=== PATIENT | female | born 1990 | race Caucasian/White ===

== ENCOUNTER 2021-02-06 17:45 | Observation (INO) | payer OTHER, SELFPAY ==
[2021-02-06 17:47] VITALS: BP 129/70; PULSE 81; RESP 20; TEMP 36.8; O2SAT 100
[2021-02-06 18:18] LABS: Bacteria Urine None Seen
[2021-02-06 18:23] LABS: Alanine Aminotransferase 13 IU/L (<35); Albumin 4.4 g/dL (3.5-5.0); Albumin Globulin Ratio 1.3 (1.0-2.8); Alkaline Phosphatase 97 U/L (38-126); Aspartate Aminotransferase 23 IU/L (14-36); BUN Creatinine Ratio 16.9 (6-22); Bilirubin Total 1.6 mg/dL (0.2-1.3); Blood Urea Nitrogen 14 mg/dL (7-17); Calcium 9.6 mg/dL (8.4-10.2); Carbon Dioxide 24 mmol/L (22-32); Chloride 104 mmol/L (98-107); Estimated Glomerular Filt Rate > 60.0 mL/min (>60); Globulin 3.5 g/dL (1.7-4.1); Glucose 98 mg/dL (70-100); HEMOLYSIS < 15 (0-50); Lipase 76 U/L (23-300); Potassium 4.1 mmol/L (3.4-5.1); Sodium 140 mmol/L (137-145); Total Protein 7.9 g/dL (6.3-8.2)
[2021-02-06 18:25] LABS: Add Manual Diff / Slide Review NO; Basophils Absolute Auto 100 /uL (0-100); Basophils Percent Auto 0.3 % (0-2); Eosinophils Absolute Auto 100 /uL (0-450); Eosinophils Percent Auto 0.6 % (2-4); Hematocrit 43.6 % (36-46); Hemoglobin 14.8 g/dL (12.0-16.0); Lymphocytes Absolute Auto 2900 /uL (1100-4500); Lymphocytes Percent Auto 14.8 % (25-40); Mean Corpuscular Hemoglobin 32.6 PG (26-34); Mean Corpuscular Volume 95.9 fL (80-100); Monocytes Absolute Auto 1200 /uL (0-900); Neutrophils Absolute Auto 15500 /uL (1500-7000); Neutrophils Percent Auto 78.3 % (50-75); Platelet Count 323 X10^3/uL (150-400); Red Blood Cell Count 4.54 X10^6/uL (4.0-5.2); Red Cell Distribution Width 12.5 % (11.6-14.8); White Blood Cell Count 19.8 X10^3/uL (4.5-11.0)
[2021-02-06 18:36] LABS: Culture Indicated Urine Cult Not Indicated; RBC Urine 0-1/HPF (0-5/HPF); Transitional Epi Cells Urine 0-1/HPF (0-5/HPF); WBC Urine 0-1/HPF (0-5/HPF)
--- NOTE | 2021-02-06 20:00 | ED.ABDPAIN ---
HPI - Abdominal Pain General Chief Complaint: Abdominal Pain Stated Complaint: abdominal pain right side Time Seen by Provider: 02/06/21 20:00 Source: patient Mode of arrival: Ambulatory History of Present Illness HPI narrative: Patient is a 30-year-old female is who is 2 weeks presenting with right lower quadrant pain. She states it started yesterday in her abdomen around her umbilical area and has localized to her right lower quadrant. It does hurt to walk a. She has had rigors but denies any fever. She currently is pain-free. She has had significant decrease in appetite but did have a bar about an hour ago. She is currently breast feeding. She denies any vaginal discharge. She says that her bleeding has decreased she does have some light brown spotting now. She did have vaginal and tear but she says overall pain is very well controlled. She has some mild pain with urination. No real back pain. complaint: abdominal pain Onset (ago): day(s) Pain Consistency: constant Location: RLQ Quality: stabbing Migration to: RLQ Related Data Allergies Allergy/AdvReac Type Severity Reaction Status Date / Time red dye Allergy Severe Rash Verified 02/06/21 23:08 amoxicillin Allergy Intermediate Verified 02/06/21 23:08 Review of Systems Review of Systems Narrative: GENERAL: +chills, Denies chills, fatigue, malaise, fever, sweats, travel HEENT: Denies sinus pain, ear pain, sore throat, difficulty swallowing, neck pain RESPIRATORY: Denies dyspnea, cough, wheezing, hemoptysis, sputum. CARDIOVASCULAR: Denies chest pain, palpitations, orthopnea, edema GASTROINTESTINAL: See HPI : Denies dysuria, frequency, incontinence, hematuria, urinary retention, flank pain. MUSCULOSKELETAL: Denies weakness, joint pain, or bony pain SKIN: No rash, no erythema, no pruritus NEUROLOGIC: Denies weakness, dizziness, headache, numbness, change in speech, confusion PSYCHIATRIC: No concerning psychosocial issues. 12 point review of systems is negative except for those stated above and HPI Patient History Medical History Patient denies medical problems Social History household members: spouse and children Exam Initial Vital Signs Initial Vital Signs: Vital Signs Temperature 98.3 F 02/06/21 17:47 Pulse Rate 81 02/06/21 17:47 Respiratory Rate 20 02/06/21 17:47 Blood Pressure 129/70 02/06/21 17:47 Pulse Oximetry 100 02/06/21 17:47 GENERAL: Alert well-appearing 30-year-old female and in no acute distress. HEENT: Head atraumatic,EOMI, pupils reactive, face symmetric, moist mucous membranes CARDIOVASCULAR: Regular rate and rhythm without murmurs, rubs or gallops. RESPIRATORY: Breath sounds equal bilaterally, no wheezes rales or rhonchi. ABDOMEN: Soft, tender right lower quadrant negative psoas sign : No CVA tenderness EXTREMITIES: Normal range of motion, no clubbing or edema. Neurovascularly intact NEUROLOGICAL: Alert and oriented x4.Normal gait and speech. SKIN: Warm, dry, no laceration, no petechiae, no rashes or lesions. Course Orders Ordered: ED Orders 02/06/21 18:00 Complete Blood Count AUTO DIFF Stat Comprehensive Metabolic Panel Stat Lactate (Lactic Acid) Stat Lipase Stat 02/06/21 18:17 Urine Microscopic Stat 02/06/21 20:07 CT abdomen pelvis w con Stat 02/06/21 21:50 COVID19 - ADMIT (LEGAL ENTITY CONTROLLER swab/PCR) Stat Diphenhydramine HCl (Diphenhydramine 50 Mg/Ml Vial) 25 mg IV Q6HR PRN PRN Reason: Itching Hydromorphone HCl (Hydromorphone 1 Mg Inj) 0.5 mg IV Q4HR PRN PRN Reason: Pain, Severe (7-10) Lactated Ringer's (Lactated Ringers) 1,000 mls @ 120 mls/hr IV CONT ELLIOTT Piperacillin/Tazobactam/Dextrose (Zosyn) 3.375 gm in 50 mls @ 12.5 mls/hr IV Q8H ELLIOTT Naloxone HCl (Naloxone 0.4 Mg/Ml Vial) 0.2 mg IV Q2MIN PRN PRN Reason: Opiate Reversal Ondansetron HCl (Ondansetron 4 Mg/2 Ml Inj) 4 mg IV Q4HR PRN PRN Reason: Nausea And Vomiting Oxycodone/Acetaminophen (Oxycodone/Acetaminophen 5/325 Tablet) 1 tab PO Q4HR PRN PRN Reason: Pain, Moderate (4-6) Polyethylene Glycol (Polyethylene Glycol 3350 17 Gm Powd.Pack) 17 gm PO BID [facility] Sennosides (Sennosides 8.6 Mg Tablet) 17.2 mg PO DAILY ELLIOTT Discontinued Medications Acetaminophen (Acetaminophen 325 Mg Tablet) 975 mg PO NOW ONE Stop: 02/06/21 22:45 Acetaminophen (Acetaminophen 325 Mg Tablet) 975 mg PO PACUNOW PRN PRN Reason: Pain, Mild (1-3) Last Admin: 02/07/21 01:44 Dose: 975 mg Documented by: VALERY Bupivacaine HCl/Epinephrine Bitart (Bupivacaine 0.25% W/ Epi (Pf) 10 Ml Vial) 30 ml INJ NOW ONE Stop: 02/06/21 23:46 Last Admin: 02/07/21 01:05 Dose: 20 ml Documented by: Admin: 02/06/21 23:45 Dose: 30 ml Documented by: KELSEA Bupivacaine Liposome (Bupivacaine Liposome 266 Mg/20 Ml Vial) 266 mg INJ NOW ONE Stop: 02/06/21 23:50 Last Admin: 02/06/21 23:49 Dose: 266 mg Documented by: KELSEA Fentanyl (Fentanyl 100 Mcg/2 Ml Inj) 0 mcg IV Q5M PRN PRN Reason: Pain, Moderate (4-6) Last Admin: 02/07/21 01:33 Dose: 50 mcg Documented by: VALERY Hydromorphone HCl (Hydromorphone 2 Mg Inj) 0 mg IV Q5M PRN PRN Reason: Pain, Moderate (4-6) Hydroxyzine HCl (Hydroxyzine 50 Mg/Ml Inj) 25 mg IM NOW PRN PRN Reason: Pain, Mild (1-3) Hydroxyzine Pamoate (Hydroxyzine Pamoate 25 Mg Capsule) 25 mg PO NOW PRN PRN Reason: Pain, Mild (1-3) Piperacillin/Tazobactam/Dextrose (Zosyn) 4.5 gm in 100 mls @ 200 mls/hr IV NOW ELLIOTT Last Admin: 02/06/21 22:59 Dose: 200 mls/hr Documented by: VALERY Lactated Ringer's (Lactated Ringers) 1,000 mls @ 42 mls/hr IV CONT [facility] Last Infusion: 02/07/21 02:28 Dose: 0 mls/hr Documented by: Admin: 02/07/21 00:09 Dose: 42 mls/hr Documented by: Infusion: 02/07/21 00:09 Dose: 42 mls/hr Documented by: Admin: 02/06/21 22:58 Dose: 42 mls/hr Documented by: VALERY Sodium Chloride (Normal Saline 0.9%) 1,000 mls @ 125 mls/hr IV CONT ELLIOTT Famotidine (Pepcid) 20 mg in 50 mls @ 200 mls/hr IV NOW ONE Stop: 02/06/21 23:58 Last Infusion: 02/06/21 23:15 Dose: 0 mls/hr Documented by: Admin: 02/06/21 23:05 Dose: 200 mls/hr Documented by: PA Meperidine HCl (Meperidine 50 Mg/Ml Inj) 12.5 mg IV PACUNOW PRN PRN Reason: Mild pain or shivering Last Admin: 02/07/21 01:29 Dose: 12.5 mg Documented by: VALERY Metoclopramide HCl (Metoclopramide 10 Mg/2 Ml Inj) 10 mg IV NOW PRN PRN Reason: Nausea And Vomiting Ondansetron HCl (Ondansetron 4 Mg/2 Ml Inj) 4 mg IV NOW PRN PRN Reason: Nausea And Vomiting Oxycodone HCl (Oxycodone Ir 5 Mg Tablet) 5 mg PO PACUNOW PRN PRN Reason: Mild or moderate pain Last Admin: 02/07/21 01:45 Dose: 5 mg Documented by: VALERY Vital Signs Vital signs: Vital Signs - 8 hr 02/06/21 20:19 02/06/21 21:38 Pulse Rate 90 80 Respiratory Rate 20 20 Blood Pressure 119/67 119/66 Pulse Oximetry 98 98 MDM - Abdominal Pain Lab Data Result diagrams: 02/06/21 18:00 02/06/21 18:00 Labs: Lab Results 02/06/21 02/06/21 02/06/21 Range/Units 18:00 18:00 18:00 WBC 19.8 H (4.5-11.0) X10^3/uL RBC 4.54 (4.0-5.2) X10^6/uL Hgb 14.8 (12.0-16.0) g/dL Hct 43.6 (36-46) % MCV 95.9 (80-100) fL MCH 32.6 (26-34) PG MCHC 34.0 (30-36) % RDW 12.5 (11.6-14.8) % Plt Count 323 (150-400) X10^3/uL Neut % (Auto) 78.3 H (50-75) % Lymph % (Auto) 14.8 L (25-40) % [place] % (Auto) 6.0 (3-14) % Eos % (Auto) 0.6 L (2-4) % Baso % (Auto) 0.3 (0-2) % Neut # (Auto) 73357 H (4670-4784) /uL Lymph # (Auto) 2900 (9973-3087) /uL [place] # (Auto) 1200 H (0-900) /uL Eos # (Auto) 100 (0-450) /uL Baso # (Auto) 100 (0-100) /uL PT INR APTT Sodium 140 (137-145) mmol/L Potassium 4.1 (3.4-5.1) mmol/L Chloride 104 (98-107) mmol/L Carbon Dioxide 24 (22-32) mmol/L BUN 14 (7-17) mg/dL Creatinine 0.83 (0.52-1.04) mg/dL Estimated GFR > 60.0 (>60) mL/min BUN/Creatinine Ratio 16.9 (6-22) Glucose 98 (70-100) mg/dL Lactate 1.2 (0.7-2.1) mmol/L Calcium 9.6 (8.4-10.2) mg/dL Total Bilirubin 1.6 H (0.2-1.3) mg/dL AST 23 (14-36) IU/L ALT 13 (<35) IU/L Alkaline Phosphatase 97 (38-126) U/L Total Protein 7.9 (6.3-8.2) g/dL Albumin 4.4 (3.5-5.0) g/dL Globulin 3.5 (1.7-4.1) g/dL Albumin/Globulin Ratio 1.3 (1.0-2.8) Lipase 76 (23-300) U/L Urine RBC (0-5/HPF) Urine WBC (0-5/HPF) Ur Transition Epith Cell (0-5/HPF) Urine Bacteria (None) Ur Culture Indicated? SARS-CoV-2 (PCR) (Negative) 02/06/21 02/06/21 02/06/21 Range/Units 18:17 18:42 21:50 WBC (4.5-11.0) X10^3/uL RBC (4.0-5.2) X10^6/uL Hgb (12.0-16.0) g/dL Hct (36-46) % MCV (80-100) fL MCH (26-34) PG MCHC (30-36) % RDW (11.6-14.8) % Plt Count (150-400) X10^3/uL Neut % (Auto) (50-75) % Lymph % (Auto) (25-40) % [place] % (Auto) (3-14) % Eos % (Auto) (2-4) % Baso % (Auto) (0-2) % Neut # (Auto) (8426-0608) /uL Lymph # (Auto) (1433-1779) /uL [place] # (Auto) (0-900) /uL Eos # (Auto) (0-450) /uL Baso # (Auto) (0-100) /uL PT Cancelled INR Cancelled APTT Cancelled Sodium (137-145) mmol/L Potassium (3.4-5.1) mmol/L Chloride (98-107) mmol/L Carbon Dioxide (22-32) mmol/L BUN (7-17) mg/dL Creatinine (0.52-1.04) mg/dL Estimated GFR (>60) mL/min BUN/Creatinine Ratio (6-22) Glucose (70-100) mg/dL Lactate (0.7-2.1) mmol/L Calcium (8.4-10.2) mg/dL Total Bilirubin (0.2-1.3) mg/dL AST (14-36) IU/L ALT (<35) IU/L Alkaline Phosphatase (38-126) U/L Total Protein (6.3-8.2) g/dL Albumin (3.5-5.0) g/dL Globulin (1.7-4.1) g/dL Albumin/Globulin Ratio (1.0-2.8) Lipase (23-300) U/L Urine RBC 0-1/hpf (0-5/HPF) Urine WBC 0-1/hpf (0-5/HPF) Ur Transition Epith Cell 0-1/hpf (0-5/HPF) Urine Bacteria None seen (None) Ur Culture Indicated? Cult not indicated SARS-CoV-2 (PCR) Negative (Negative) Point of care testing: Urine Dip Bedside Urine Glucose Negative Bedside Urine Bilirubin - Negative Bedside Urine Ketone - Negative Urine Specific [place] 1.020 Bedside Urine Occult Blood +/- Bedside Urine pH 6 Bedside Urine Protein - Negative Bedside Urine Urobilinogen - Negative Bedside Urine Nitrite - Negative Bedside Urine Leukocytes - Negative Esterase Imaging Data CT scan - abdomen/pelvis: Radiologist's Impression: PROCEDURE: CT ABDOMEN PELVIS W CON INDICATIONS: RLQ pain TECHNIQUE: After the administration of intravenous contrast, 5 mm thick sections acquired from the diaphragm to the symphysis. 5 mm coronal and sagittal reformats were acquired. For radiation dose reduction, the following was used: automated exposure control, adjustment of mA and/or kV according to patient size. COMPARISON: None. FINDINGS: Image quality: Excellent. ABDOMEN: Lung bases: Lung bases are clear. Heart size is normal. Solid organs: Liver is normal in size and enhancement. Gallbladder is normal. Biliary system is non dilated. Pancreas enhances normally. Spleen is normal in size and enhancement. No adrenal nodules. Kidneys demonstrate normal size and enhancement, without hydronephrosis. Peritoneum and bowel: Dilated and fluid filled appendix with adjacent fluid and fat stranding. Right lower quadrant mesenteric lymphadenopathy. Bowel loops demonstrate normal wall thickness and caliber. No free fluid or air. Nodes and vessels: No retroperitoneal or mesenteric adenopathy by size criteria. Aorta and inferior vena cava are normal in size. Miscellaneous: No ventral hernias. PELVIS: Genitourinary: Bladder wall thickness is normal. Miscellaneous: No inguinal hernias or adenopathy. Bones: No suspicious bony lesions. No vertebral body compression fractures. IMPRESSION: Acute appendicitis. The presence and volume of fluid adjacent to the appendix raises concern for rupture. Dictated by: Johny Mobley M.D. on 02/06/2021 at 21:01 MDM Narrative Medical decision making narrative: Patient has classic signs and symptoms of appendicitis leukocytosis of [address] confirmation of appendicitis. 2129 Dr. Scott updated patient's symptoms test results and is in ED to seen evaluate patient. Patient will be going to the OR this evening. Patient has amoxicillin listed as an allergy however she thinks has to do with the red dye it was from when she was a small child. She says she has had since and okay she understands that she will be getting Zosyn which is a penicillin which she is okay with. Also discussed continuing with her, encouraged pumping and possible supplementation if needed as well. Discharge Plan Departure Patient Disposition: Admitted As Inpatient Clinical Impression: Acute appendicitis Qualifiers: Acute appendicitis type: with localized peritonitis Appendicitis gangrene presence: without gangrene Appendicitis perforation presence: with perforation Appendicitis abscess presence: without abscess Qualified Code(s): K35.32 - Acute appendicitis with perforation and localized peritonitis, without abscess Admit Date/Time: 02/06/21 21:50 Admit Provider: Jeannie Woods
--- NOTE | 2021-02-06 20:07 | DI.CT.S_ITS ---
PROCEDURE: CT ABDOMEN PELVIS W CON INDICATIONS: RLQ pain TECHNIQUE: After the administration of intravenous contrast, 5 mm thick sections acquired from the diaphragm to the symphysis. 5 mm coronal and sagittal reformats were acquired. For radiation dose reduction, the following was used: automated exposure control, adjustment of mA and/or kV according to patient size. COMPARISON: None. FINDINGS: Image quality: Excellent. ABDOMEN: Lung bases: Lung bases are clear. Heart size is normal. Solid organs: Liver is normal in size and enhancement. Gallbladder is normal. Biliary system is non dilated. Pancreas enhances normally. Spleen is normal in size and enhancement. No adrenal nodules. Kidneys demonstrate normal size and enhancement, without hydronephrosis. Peritoneum and bowel: Dilated and fluid filled appendix with adjacent fluid and fat stranding. Right lower quadrant mesenteric lymphadenopathy. Bowel loops demonstrate normal wall thickness and caliber. No free fluid or air. Nodes and vessels: No retroperitoneal or mesenteric adenopathy by size criteria. Aorta and inferior vena cava are normal in size. Miscellaneous: No ventral hernias. PELVIS: Genitourinary: Bladder wall thickness is normal. Miscellaneous: No inguinal hernias or adenopathy. Bones: No suspicious bony lesions. No vertebral body compression fractures. IMPRESSION: Acute appendicitis. The presence and volume of fluid adjacent to the appendix raises concern for rupture. Dictated by: Johny Mobley M.D. on 02/06/2021 at 21:01 Approved by: Johny Mobley M.D. on 02/06/2021 at 21:06
[2021-02-06 20:13] LABS: Lactate (Lactic Acid) 1.2 mmol/L (0.7-2.1)
[2021-02-06 20:19] VITALS: BP 119/67; PULSE 90; RESP 20; O2SAT 98
[2021-02-06 21:38] VITALS: BP 119/66; PULSE 80; RESP 20; O2SAT 98
--- NOTE | 2021-02-06 22:22 | P.HP_ITS ---
History of Present Illness History of Present Illness Date Patient Seen: 02/06/21 Time Patient Seen: 22:23 Chief complaint: abdominal pain right side Narrative: This is a 30-year-old woman who is 2 weeks , and came into the ER tonight with abdominal pain which began yesterday afternoon. She says the pain began around the umbilicus and traveled to the right lower quadrant. She thought it was something she ate. She came into the ER this evening, was f ound to have white count of 19, and a CT scan consistent with acute appendicitis. There is quite a bit of fluid free in the abdomen, concerning for ruptured appendix. She has her 2-week-old infant with her in the ER, whom she has been . She reports that she has chronic GI symptoms with frequent bouts of constipation. She had rectal prolapse as a child due to severe constipation. She has a right inguinal hernia which she says she only notices when she is . She says it does not bother her when she is not . She currently feels it is completely flat. Past medical history: Depression Right inguinal hernia Chronic constipation in childhood with rectal prolapse History of pericarditis 2 weeks ago Surgical history: History of Incision and drainage of pericarditis, with drain placement Medications: Folate supplement vitamin Family history: Denies any family history of colorectal disease Social history: Denies tobacco use, has an occasional glass of wine since giving . Denies any other substance use Lives with her and children Allergies: Allergy to red dye Allergy to amoxicillin is specifically to the red dye that was used in liquid amoxicillin she took as a child Review of systems: Denies chest pain, shortness of breath, dysuria. Reports constipation. Last bowel movement was sometime yesterday. Thirteen system review is otherwise negative other than as mentioned below and in HPI. PE: GENERAL: Well groomed and cooperative. Well-appearing and nontoxic appearing. Answers questions promptly and appropriately. Vital signs noted. HENT: Normocephalic, atraumatic. Hearing intact. EYES: Conjunctiva pink, sclera white, no periorbital swelling. CARDIOVASCULAR: Regular rate. No pedal edema. RESPIRATORY: Non-tachypneic, breathing comfortably on room air. GASTROINTESTINAL: Abdomen soft, rounded, tender to palpation in the right lower quadrant. Positive Rovsing sign. Tender in right flank. Tiny umbilical hernia. MUSCULOSKELETAL: Equal tone and mass bilaterally. SKIN: Warm, dry, soft, appropriate color for ethnicity. No other lesions, rashes, or wounds. NEURO: Alert and Oriented X 3. No gross sensory deficits, or cognitive issues. PSYCH: Appropriate affect and mood. Patient History Medical History Patient denies medical problems Meds Home Medications and Allergies Allergies Allergy/AdvReac Type Severity Reaction Status Date / Time red dye Allergy Severe Rash Verified 02/06/21 21:37 amoxicillin Allergy Intermediate Verified 02/06/21 21:38 Exam Vital Signs (past 8 hours): - 02/06/21 17:47 02/06/21 20:19 02/06/21 21:38 Temperature 98.3 F Pulse Rate 81 90 80 Respiratory Rate 20 20 20 Blood Pressure 129/70 119/67 119/66 Pulse Oximetry 100 98 98 Oxygen Delivery Method Room Air Objective Imaging CT scan - abdomen: Radiologist's impression: [address] [id number] Scan ReportSigned Patient: Marge Berumen JMR#: [id number]: [id number]:[id number]/Sex: 30 / FDate of Service: 02/06/21Loc: EDAccession Number: [id number] Procedure: CT abdomen pelvis w con Ordering Provider: Holly Howard D.O. PROCEDURE: CT ABDOMEN PELVIS W CON INDICATIONS: RLQ pain TECHNIQUE: After the administration of intravenous contrast, 5 mm thick sections acquired from the diaphragm to the symphysis. 5 mm coronal and sagittal reformats were acquired. For radiation dose reduction, the following was used: automated exposure control, adjustment of mA and/or kV according to patient size. COMPARISON: None. FINDINGS: Image quality: Excellent. ABDOMEN: Lung bases: Lung bases are clear. Heart size is normal. Solid organs: Liver is normal in size and enhancement. Gallbladder is normal. Biliary system is non dilated. Pancreas enhances normally. Spleen is normal in size and enhancement. No adrenal nodules. Kidneys demonstrate normal size and enhancement, without hydronephrosis. Peritoneum and bowel: Dilated and fluid filled appendix with adjacent fluid and fat stranding. Right lower quadrant mesenteric lymphadenopathy. Bowel loops demonstrate normal wall thickness and caliber. No free fluid or air. Nodes and vessels: No retroperitoneal or mesenteric adenopathy by size criteria. Aorta and inferior vena cava are normal in size. Miscellaneous: No ventral hernias. PELVIS: Genitourinary: Bladder wall thickness is normal. Miscellaneous: No inguinal hernias or adenopathy. Bones: No suspicious bony lesions. No vertebral body compression fractures. IMPRESSION: Acute appendicitis. The presence and volume of fluid adjacent to the appendix raises concern for rupture. Dictated by: Johny Mobley M.D. on 02/06/2021 at 21:01 Approved by: Johny Mobley M.D. on 02/06/2021 at 21:06 Labs Result Diagrams: 02/06/21 18:00 02/06/21 18:00 Labs: Laboratory Results - last 24 hr 02/06/21 02/06/21 02/06/21 18:00 18:00 18:00 WBC 19.8 H RBC 4.54 Hgb 14.8 Hct 43.6 MCV 95.9 MCH 32.6 MCHC 34.0 RDW 12.5 Plt Count 323 Neut % (Auto) 78.3 H Lymph % (Auto) 14.8 L [place] % (Auto) 6.0 Eos % (Auto) 0.6 L Baso % (Auto) 0.3 Neut # (Auto) 12465 H Lymph # (Auto) 2900 [place] # (Auto) 1200 H Eos # (Auto) 100 Baso # (Auto) 100 PT INR APTT Sodium 140 Potassium 4.1 Chloride 104 Carbon Dioxide 24 BUN 14 Creatinine 0.83 Estimated GFR > 60.0 BUN/Creatinine Ratio 16.9 Glucose 98 Lactate 1.2 Calcium 9.6 Total Bilirubin 1.6 H AST 23 ALT 13 Alkaline Phosphatase 97 Total Protein 7.9 Albumin 4.4 Globulin 3.5 Albumin/Globulin Ratio 1.3 Lipase 76 Urine RBC Urine WBC Ur Transition Epith Cell Urine Bacteria Ur Culture Indicated? 02/06/21 02/06/21 18:17 18:42 WBC RBC Hgb Hct MCV MCH MCHC RDW Plt Count Neut % (Auto) Lymph % (Auto) [place] % (Auto) Eos % (Auto) Baso % (Auto) Neut # (Auto) Lymph # (Auto) [place] # (Auto) Eos # (Auto) Baso # (Auto) PT Cancelled INR Cancelled APTT Cancelled Sodium Potassium Chloride Carbon Dioxide BUN Creatinine Estimated GFR BUN/Creatinine Ratio Glucose Lactate Calcium Total Bilirubin AST ALT Alkaline Phosphatase Total Protein Albumin Globulin Albumin/Globulin Ratio Lipase Urine RBC 0-1/hpf Urine WBC 0-1/hpf Ur Transition Epith Cell 0-1/hpf Urine Bacteria None seen Ur Culture Indicated? Cult not indicated Assessment & Plan Assessment and plan (1) Acute appendicitis with generalized peritonitis: Qualifiers: Appendicitis gangrene presence: unspecified whether gangrene present Appendicitis perforation presence: unspecified whether perforation present Appendicitis abscess presence: unspecified whether abscess present Qualified Code(s): K35.20 - Acute appendicitis with generalized peritonitis, without abscess Status: Acute Assessment & Plan narrative: This is a 30-year-old woman with acute appendicitis. She is 2 weeks and is actively breast-feeding her . The risks and benefits of laparoscopic possible open appendectomy were discussed with the patient and . Explained to the patient that given the free fluid in her abdomen concerned that she has possible perforation of the appendix, and a high risk of developing an abscess or obstruction post surgery. Risks and benefits of the procedure were discussed including risk of bleeding, infection, damage to nearby structures, need for additional procedures, need for open surgery, hernia formation, bowel obstruction, abscess formation, need for prolonged hospitalization or need for drain placement. The patient desires to proceed with surgery. Plan: Urgently to OR for laparoscopic possible open appendectomy COVID-19 COVID-19 status: Negative Result date/Date tested (Pos, Neg/Pending): 02/06/21 Time Spent With Patient Time with patient: 15-24 minutes Quality VTE Deep Vein Thrombosis/Pulmonary Embolism Present on Admission: No
[2021-02-06 22:35] LABS: COVID19 - ADMIT (NP swab/PCR) Negative (Negative)
[2021-02-06] MEDS: LACTATED RINGERS 1,000 ML 42 ML IV (22:58)
[2021-02-06] MEDS: PIPERACILLIN-TAZO 4.5 GM/100 ML FROZ.PIGGY IV (22:59)
[2021-02-06] MEDS: FAMOTIDINE 20 MG/50 ML PIGGYBACK 200 MG IV (23:05)
[2021-02-06 23:07] VITALS: BP 107/70; PULSE 77; RESP 16; TEMP 37.2; O2SAT 100
--- NOTE | 2021-02-06 23:10 | SUR.OPER ---
Supine on padded OR bed, head on pillow, arm padded and tucked at side, legs uncrossed, safety belt at thigh, tape over blanket over lower legs .
[2021-02-06] MEDS: BUPIVACAINE 0.25% W/ EPI (PF) 10 ML VIAL 30 ML INJ (23:45)
[2021-02-06] MEDS: BUPIVACAINE LIPOSOME 266 MG/20 ML VIAL INJ (23:49)
[2021-02-07] VITALS (15 sets, daily range): BP systolic 87–109; BP diastolic 47–72; PULSE 63–80; RESP 10–18; TEMP 36.2–37.1; O2SAT 93–98; BMI 27.3
--- NOTE | 2021-02-07 | PATH_ITS ---
[facility] Accession Number: [id number] . 01 Material submitted: . appendix - APPENDIX . 02 Diagnosis: Appendix, Appendectomy: Acute appendicitis with serositis and features of performation / rupture. V 02/12/2021 1320 Local . 02 Electronically signed: . Lili aHrris MD, Pathologist NPI- [id number] . 01 Gross description: . The specimen is received in formalin, labeled appendix, and consists of a 7.5 cm in length by 1.5 cm in diameter vermiform appendix with minimal attached andrews-yellow lobulated mesoappendix. The serosa is andrews-pink and dull with fibrinous adhesions and purulent exudate. Sectioning reveals a andrews, focally hemorrhagic mucosa and a lumen measuring 0.6 cm in diameter. Javascript Engineer sections are submitted, to include the margin (blue), central cross-sections, and bisected tip in cassette A1-A2. ([id number]) /R 02/09/2021 1651 Local . 02 Pathologist provided ICD-10: K35.20 . 02 CPT . 485800 Performed at: 01 [facility] [address] [facility], [place], [place] [id number] MD Mejia Santana MD Phone: [phone] Performed at: 02 [facility] [address] [place], [place] [id number] MD Gita Macedo MD Phone: [phone]
[2021-02-07] MEDS: LACTATED RINGERS 1,000 ML 42 ML IV (00:09)
[2021-02-07] MEDS: BUPIVACAINE 0.25% W/ EPI (PF) 10 ML VIAL 30 ML INJ (01:05)
--- NOTE | 2021-02-07 01:22 | PM.OP.1 ---
Operative Date/Time/Diagnoses Date of procedure: 02/07/21 Time of procedure: 01:22 Pre-op diagnosis: Acute appendicitis, perforation suspected on CT scan Post-op diagnosis: other (Acute suppurative appendicitis without evidence of eran perforation) Procedure & Clinicians Procedure: Laparoscopic appendectomy RENATA drain placement Same procedure as scheduled: Yes Indications: Acute appendicitis Surgeon: Jeannie Woods Click Yes if Unassisted: Yes Anesthesia Type: General Operative Notes Findings: Densely thickened appendix plastered down onto the cecum and retroperitoneal fat; well vascularized phlegmon with multiple bleeders Specimen(s): other (Appendix) Applied: drain(s) (19 round Freedom drain) Estimated Blood Loss (mL): 150 Procedure in detail: The patient was brought into the operating room and placed supine on the OR table. Sequential compression devices were placed on both legs and turned on. 3.375 gm of Zosyn was given prior to the start of surgery. General anesthesia was induced the patient was intubated. Baca catheter was placed sterilely in the bladder. The abdomen was prepped and draped in sterile fashion. Surgical time-out was conducted. Local anesthetic was injected under the skin just superior to the umbilicus and a 5 mm vertical incision was made at this site. The umbilical stalk was grasped with a Stephanie and elevated. A Veress needle was passed through the fascia into proper position. The position was tested with a saline drop test which was appropriate for intra-abdominal Veress needle placement. The abdomen was then insufflated in the usual fashion. Once insufflated to 15 mm Hg the Veress needle was removed and a 5 mm optical trocar was placed under direct vision using a 5 mm 30 degree scope. Once the camera was inside the abdomen I took a look around. There was no injury from port placement. Two additional ports were placed in a similar fashion in the suprapubic position and left lower quadrant. The umbilical port was upsized to a 12 mm port. I took a look at the cecum and right lower quadrant, and the appendix was seen thickened, firm, and densely adherent to the surrounding structures. There was a small pool of bilious fluid in the pelvis. No pus or eran stool was seen. Tedious dissection was undertaken to free the appendix from where it was plastered down onto the cecum and retroperitoneal fat. The appendix was socked in with a dense phlegmonous rind around it. Multiple bleeding vessels had to be controlled as the very inflammatory rind was dissected. LigaSure and 5 mm clips were used to control the bleeding. Once the entire appendix was dissected off of the cecum I dissected down to the base of the appendix, and stapled across the junction of the appendix to the cecum using of 45 mm blue load Endo LEANDRA stapler. The appendix was then placed into an Endo-Catch bag, and removed through the umbilical port site. It was passed off the table for pathology. I then took another look at the right lower quadrant, irrigated to check for any ongoing bleeding. There was no evidence of ongoing bleeding. The staple line was hemostatic. I then used a laparoscopic needle trash collector truck driver and a 3-0 silk suture to oversew the area of prior bleeding. It was hemostatic at this point but I over sewed it in order to avoid rebleeding. All the raw surface and prior areas of bleeding were covered and secured. There was no evidence of ongoing bleeding. A 19 round Freedom drain was placed through an incision in the right lower quadrant and positioned in the pelvis and along the right gutter. I then used the laparoscopic suture passer and closed the umbilical port site with 0 Vicryl suture through the fascia. Local anesthetic was used in this site and the other 2 port sites for a total of 30 mL of 0.5% Marcaine with epi for the entire case. At this point the insufflation was removed from the abdomen and the port sites were closed with, 3-0 Vicryl in the subcutaneous layers, and 4 Monocryl in the skin. Each port site was sealed with Steri-Strips and covered with Band-Aids. Local anesthetic was given at each of the port sites and in the fascia. This concluded the procedure. At this point the needle sponge and instrument counts were correct. The patient was awakened from anesthesia and extubated. Baca catheter was removed without incident. The patient was transferred to the postanesthesia care unit in stable condition. Due to the severe extent of patient disease, this case took approximately twice the normal operative time, and required a higher level of skill and risk in order to complete the procedure safely. Modifier 22 is recommended in the coding of this case. Complications: none Post-operative Condition: stable Disposition: PACU
[2021-02-07] MEDS: MEPERIDINE 50 MG/ML INJ 12.5 MG IV (01:29)
[2021-02-07] MEDS: fentaNYL 100 MCG/2 ML INJ IV (01:33)
[2021-02-07] MEDS: ACETAMINOPHEN 325 MG TABLET 975 MG PO (01:44)
[2021-02-07] MEDS: OXYCODONE IR 5 MG TABLET PO ×3 (01:45→20:02)
--- NOTE | 2021-02-07 02:05 | SUR.PHASEI ---
Patient tolerating PO well, appleasauce, soda, ice chips. Denies nausea. Pain 6/10, improved. Pt calm, pleasant. states The most painful part right now is the IV placement? Icd chips for throat irritation, improving, decreasing amount of coughing. States that c'ompared to labor, this feels pretty good.'
--- NOTE | 2021-02-07 02:33 | SUR.PHASEI ---
0219 to room 215, bed down and locked, call light within reach. Abd remains soft, dressings CDI, drain compressed. Spouse present. He took all of their belongings and the baby to her room when she went into the OR. No questions/concerns. Pt drowsy, oriented, very pleasant, both expressed appreciation for the care.
[2021-02-07] MEDS: OXYCODONE/ACETAMINOPHEN 5/325 TABLET 1 TAB PO ×2 (03:31→08:19)
[2021-02-07] MEDS: LACTATED RINGERS 1,000 ML 120 ML IV (03:32)
[2021-02-07 05:35] LABS: Add Manual Diff / Slide Review NO; Basophils Absolute Auto 0 /uL (0-100); Basophils Percent Auto 0.2 % (0-2); Eosinophils Absolute Auto 0 /uL (0-450); Hematocrit 35.5 % (36-46); Hemoglobin 12.1 g/dL (12.0-16.0); Lymphocytes Absolute Auto 1000 /uL (1100-4500); Lymphocytes Percent Auto 5.4 % (25-40); Mean Corpuscular HGB Conc 34.1 % (30-36); Mean Corpuscular Hemoglobin 32.4 PG (26-34); Monocytes Absolute Auto 200 /uL (0-900); Monocytes Percent Auto 0.9 % (3-14); Neutrophils Absolute Auto 17800 /uL (1500-7000); Neutrophils Percent Auto 93.5 % (50-75); Platelet Count 262 X10^3/uL (150-400); Red Blood Cell Count 3.74 X10^6/uL (4.0-5.2); Red Cell Distribution Width 12.4 % (11.6-14.8); White Blood Cell Count 19.1 X10^3/uL (4.5-11.0)
[2021-02-07 05:43] LABS: Blood Urea Nitrogen 14 mg/dL (7-17); Calcium 8.2 mg/dL (8.4-10.2); Carbon Dioxide 22 mmol/L (22-32); Chloride 105 mmol/L (98-107); Estimated Glomerular Filt Rate > 60.0 mL/min (>60); Glucose 132 mg/dL (70-100); HEMOLYSIS < 15 (0-50); Potassium 4.2 mmol/L (3.4-5.1); Sodium 133 mmol/L (137-145)
[2021-02-07] MEDS: SENNOSIDES 8.6 MG TABLET 17.2 MG PO (08:19)
[2021-02-07] MEDS: polyethylene glycoL 3350 17 GM POWD.PACK PO ×2 (08:21→20:01)
[2021-02-07] MEDS: PIPERACILLIN-TAZO 3.375 GM/50 ML FROZ.PIGGY IV ×2 (08:24→15:58)
--- NOTE | 2021-02-07 09:20 | P.PN_ITS ---
Subjective Subjective Date Patient Seen: 02/07/21 Time Patient Seen: 13:01 Interval history: Pt had emergency surgery last night for acute appendicitis. She denies nausea/vomiting. Has ambulated to the bathroom. Is tolerating clear liquid diet. Pain is not completely well controlled. Exam Vital Signs (past 8 hours): - 02/07/21 01:25 02/07/21 01:32 02/07/21 01:37 Temperature 98.7 F Pulse Rate 80 72 69 Respiratory Rate 14 14 10 L Blood Pressure 90/53 L 100/49 L 100/50 L Pulse Oximetry 94 98 96 02/07/21 01:42 02/07/21 01:52 02/07/21 02:07 Temperature Pulse Rate 69 67 67 Respiratory Rate 11 L 11 L 11 L Blood Pressure 99/52 L 87/47 L 94/51 L Pulse Oximetry 98 94 93 02/07/21 02:17 02/07/21 02:31 02/07/21 03:00 Temperature 97.1 F L Pulse Rate 69 67 70 Respiratory Rate 15 16 16 Blood Pressure 97/50 L 93/55 L 95/52 L Pulse Oximetry 94 97 95 02/07/21 03:36 02/07/21 04:43 02/07/21 07:45 Temperature 98.0 F 98.3 F 97.9 F Pulse Rate 77 64 63 Respiratory Rate 16 16 16 Blood Pressure 96/51 L 98/56 L 101/60 Pulse Oximetry 96 95 96 Oxygen Delivery Method Room Air Oxygen Flow Rate 0 Narrative Exam Narrative: GENERAL: Alert. Comfortable. Non toxic appearing. CARDIOVASCULAR: Regular rate. No pedal edema. RESPIRATORY: Non-tachypneic, breathing comfortably on room air. GASTROINTESTINAL: Abdomen soft, appropriately ttp for POD#0, jared drain dark serosanguinous, 140mL output overnight; dressings c/d/i Objective Labs Result Diagrams: 02/07/21 05:15 02/07/21 05:15 Labs: Laboratory Results - last 24 hr 02/06/21 02/06/21 02/06/21 18:00 18:00 18:00 WBC 19.8 H RBC 4.54 Hgb 14.8 Hct 43.6 MCV 95.9 MCH 32.6 MCHC 34.0 RDW 12.5 Plt Count 323 Neut % (Auto) 78.3 H Lymph % (Auto) 14.8 L [place] % (Auto) 6.0 Eos % (Auto) 0.6 L Baso % (Auto) 0.3 Neut # (Auto) 82216 H Lymph # (Auto) 2900 [place] # (Auto) 1200 H Eos # (Auto) 100 Baso # (Auto) 100 PT INR APTT Sodium 140 Potassium 4.1 Chloride 104 Carbon Dioxide 24 BUN 14 Creatinine 0.83 Estimated GFR > 60.0 BUN/Creatinine Ratio 16.9 Glucose 98 Lactate 1.2 Calcium 9.6 Magnesium Total Bilirubin 1.6 H AST 23 ALT 13 Alkaline Phosphatase 97 Total Protein 7.9 Albumin 4.4 Globulin 3.5 Albumin/Globulin Ratio 1.3 Lipase 76 Urine RBC Urine WBC Ur Transition Epith Cell Urine Bacteria Ur Culture Indicated? SARS-CoV-2 (PCR) 02/06/21 02/06/21 02/06/21 18:17 18:42 21:50 WBC RBC Hgb Hct MCV MCH MCHC RDW Plt Count Neut % (Auto) Lymph % (Auto) [place] % (Auto) Eos % (Auto) Baso % (Auto) Neut # (Auto) Lymph # (Auto) [place] # (Auto) Eos # (Auto) Baso # (Auto) PT Cancelled INR Cancelled APTT Cancelled Sodium Potassium Chloride Carbon Dioxide BUN Creatinine Estimated GFR BUN/Creatinine Ratio Glucose Lactate Calcium Magnesium Total Bilirubin AST ALT Alkaline Phosphatase Total Protein Albumin Globulin Albumin/Globulin Ratio Lipase Urine RBC 0-1/hpf Urine WBC 0-1/hpf Ur Transition Epith Cell 0-1/hpf Urine Bacteria None seen Ur Culture Indicated? Cult not indicated SARS-CoV-2 (PCR) Negative 02/07/21 02/07/21 05:15 05:15 WBC 19.1 H RBC 3.74 L Hgb 12.1 Hct 35.5 L MCV 95.0 MCH 32.4 MCHC 34.1 RDW 12.4 Plt Count 262 Neut % (Auto) 93.5 H Lymph % (Auto) 5.4 L [place] % (Auto) 0.9 L Eos % (Auto) 0.0 L Baso % (Auto) 0.2 Neut # (Auto) 15366 H Lymph # (Auto) 1000 L [place] # (Auto) 200 Eos # (Auto) 0 Baso # (Auto) 0 PT INR APTT Sodium 133 L Potassium 4.2 Chloride 105 Carbon Dioxide 22 BUN 14 Creatinine 0.70 Estimated GFR > 60.0 BUN/Creatinine Ratio 20.0 Glucose 132 H Lactate Calcium 8.2 L Magnesium 2.0 Total Bilirubin AST ALT Alkaline Phosphatase Total Protein Albumin Globulin Albumin/Globulin Ratio Lipase Urine RBC Urine WBC Ur Transition Epith Cell Urine Bacteria Ur Culture Indicated? SARS-CoV-2 (PCR) [facility] Medical History Patient denies medical problems Social History household members: spouse and children Smoking Status: Never smoker alcohol intake: current Assessment & Plan Assessment and plan (1) Acute appendicitis: Qualifiers: Acute appendicitis type: with localized peritonitis Appendicitis abscess presence: without abscess Appendicitis gangrene presence: without gangrene Appendicitis perforation presence: with perforation Qualified Code(s): K35.32 - Acute appendicitis with perforation and localized peritonitis, without abscess Status: Acute Assessment & Plan narrative: POD#0 s/p laparoscopic appendectomy finished at 1AM. WBC 19, drain serosanguinous, hgb stable, tolerating PO. We will continue 24 hours of zosyn and following her labs and the drain output. If hgb is stable, wbc comes down, and pt tolerates PO and has pain well controlled on PO pain meds she may be able to DC home tomorrow AM after drain is removed. Plan: Advance to general diet hold chemical dvt ppx because of high risk of post op bleed ambulate frequently PO and IV pain meds PRN SCD's on when in the bed AM labs tomorrow Continue zosyn 24 hours COVID-19 COVID-19 status: Negative Result date/Date tested (Pos, Neg/Pending): 02/06/21 Time Spent With Patient Time with patient: 15-24 minutes Quality VTE Deep Vein Thrombosis/Pulmonary Embolism Present on Admission: Yes
--- NOTE | 2021-02-07 10:31 | CM.IDA ---
Addendum entered by GENNA Johnson 02/08/21 14:42: Patient DC home w/family as expected, no needs from this GENNA JW Addendum entered by GENNA Johnson 02/07/21 13:34: Patient staying the evening, possible DC home tomorrow AM if medically cleared. Original Note: Initial DCP Assessment Note Pt is a 30yo female, resident of [place], 2 weeks , arrives w/severe abd pain and underwent lap appy late yesterday evening w/Dr Woods PCP: None Listed Payer: Clint Reviewed chart, pt discussed in multidisciplinary rounds this morning. 2 week old baby in room breast feeding, supportive spouse also present to assist. Patient is ambulating in room and hopeful to return home today. Patient arrived back to AC floor from OR early this AM, however, patient still may be able to safely return home today if medically cleared. No needs expected from DC planning team although will remain available in case this changes today. GENNA Johnson
[2021-02-07] MEDS: OXYCODONE IR 10 MG TABLET PO (16:04)
[2021-02-07] MEDS: ACETAMINOPHEN 325 MG TABLET 650 MG PO (16:04)
--- NOTE | 2021-02-07 17:05 | PC.NURSE ---
Addendum entered by Stefany Winters R.N. 02/07/21 20:22: Serosang drainage via RENATA. Pt admits to greatest pain RLQ. Given 5 mg oxycodone as per request and ice pack to site. IV antibiotic has completed and pt states wishes to sleep. Pt's spouse and are asleep in room. Will allow for uninterrupted rest. Original Note: Pt ambulatory in hallway with SPECIAL EVENTS COORDINATOR @ beginning of shift. Voids in bathroom and returns to bed. BL calf scd's replaced. IV antibiotic begun as per emar. Pt admits to abdominal/incisional pain 7/10 after ambulation. Administered 10 mg oxycodone and tylenol as per emar to manage pain. Pt denies nausea and reports passing minimal flatus. Bowel tones are quiet. Abdomen is puffy with large bandaids x 3 to abdomen and RENATA drain emptied and compressed. Dressing to RENATA site is dry and intact. Pt's spouse and are present in room. Spouse providing all care of . Pt is prn.
[2021-02-07] MEDS: SODIUM CHLORIDE 0.9% FLUSH 10 ML IV (20:02)
[2021-02-08] MEDS: PIPERACILLIN-TAZO 3.375 GM/50 ML FROZ.PIGGY IV ×2 (00:22→07:51)
[2021-02-08] MEDS: OXYCODONE IR 5 MG TABLET PO ×3 (00:23→11:22)
[2021-02-08 00:25] VITALS: BP 118/68; PULSE 61; RESP 18; TEMP 36.3; O2SAT 97
[2021-02-08 04:39] VITALS: BP 110/52; PULSE 59; RESP 18; TEMP 36.7; O2SAT 99
[2021-02-08 06:19] LABS: BUN Creatinine Ratio 17.8 (6-22); Blood Urea Nitrogen 16 mg/dL (7-17); Calcium 8.7 mg/dL (8.4-10.2); Carbon Dioxide 25 mmol/L (22-32); Chloride 105 mmol/L (98-107); Estimated Glomerular Filt Rate > 60.0 mL/min (>60); Glucose 93 mg/dL (70-100); HEMOLYSIS < 15 (0-50); Magnesium 1.7 mg/dL (1.6-2.3); Potassium 3.7 mmol/L (3.4-5.1); Sodium 136 mmol/L (137-145)
[2021-02-08] MEDS: ACETAMINOPHEN 325 MG TABLET 650 MG PO (07:45)
[2021-02-08] MEDS: polyethylene glycoL 3350 17 GM POWD.PACK PO (09:00)
[2021-02-08] MEDS: SENNOSIDES 8.6 MG TABLET 17.2 MG PO (09:00)
[2021-02-08] MEDS: SODIUM CHLORIDE 0.9% FLUSH 10 ML IV (09:00)
[2021-02-08 09:13] LABS: Add Manual Diff / Slide Review NO; Basophils Absolute Auto 0 /uL (0-100); Basophils Percent Auto 0.3 % (0-2); Eosinophils Absolute Auto 200 /uL (0-450); Eosinophils Percent Auto 1.8 % (2-4); Hematocrit 36.8 % (36-46); Hemoglobin 11.9 g/dL (12.0-16.0); Lymphocytes Absolute Auto 3500 /uL (1100-4500); Lymphocytes Percent Auto 29.8 % (25-40); Mean Corpuscular HGB Conc 32.4 % (30-36); Mean Corpuscular Hemoglobin 31.7 PG (26-34); Mean Corpuscular Volume 97.9 fL (80-100); Monocytes Absolute Auto 900 /uL (0-900); Monocytes Percent Auto 8.1 % (3-14); Neutrophils Absolute Auto 6900 /uL (1500-7000); Platelet Count 271 X10^3/uL (150-400); Red Blood Cell Count 3.76 X10^6/uL (4.0-5.2); Red Cell Distribution Width 12.5 % (11.6-14.8); White Blood Cell Count 11.6 X10^3/uL (4.5-11.0)
--- NOTE | 2021-02-08 09:54 | P.DS_ITS ---
History of Present Illness History of Present Illness Date Patient Seen: 02/08/21 Time Patient Seen: 09:54 Chief complaint: abdominal pain right side Narrative: Patient is a woman admitted with abdominal pain. She is several weeks . Finding suggested acute appendicitis as a source of her pain. Discharge Providers Provider Date of admission: 02/06/21 21:50 Discharge Date: 02/08/21 Primary care physician: Doctor Darius MD Consults: 02/06/21 22:48 Consult to Discharge Planning Routine Comment: Discharge provider: Cricket Phillips MD Summary Hospital Course Discharge Diagnosis: Acute appendicitis. Recent . Small umbilical hernia chronic. Hospital Course: Patient was taken the operating room and underwent laparoscopic removal of her appendix. A drain was placed intra operatively. The patient had a small umbilical hernia that was repaired at the time of operation. Her postoperative course was smooth. The morning of her discharge she had an essentially normal white blood cell count with a normal differential. Status at Discharge Cognitive/behavioral status at discharge: at baseline, oriented Functional status at discharge: independent ambulation Overall status at discharge: patient is progressing back to baseline Exam Vital Signs (past 8 hours): - 02/08/21 04:39 Temperature 98.1 F Pulse Rate 59 L Respiratory Rate 18 Blood Pressure 110/52 L Pulse Oximetry 99 Oxygen Delivery Method Room Air Oxygen Flow Rate 0 Narrative Exam Narrative: Abdomen is scaphoid. Dressings are dry and intact. No evidence of cellulitis. Drainage is serosanguineous. Objective Labs Result Diagrams: 02/08/21 05:05 02/08/21 05:05 Labs: Laboratory Results - last 24 hr 02/08/21 02/08/21 05:05 05:05 WBC 11.6 H RBC 3.76 L Hgb 11.9 L Hct 36.8 MCV 97.9 MCH 31.7 MCHC 32.4 RDW 12.5 Plt Count 271 Neut % (Auto) 60.0 D Lymph % (Auto) 29.8 D [place] % (Auto) 8.1 Eos % (Auto) 1.8 L Baso % (Auto) 0.3 Neut # (Auto) 6900 Lymph # (Auto) 3500 [place] # (Auto) 900 Eos # (Auto) 200 Baso # (Auto) 0 Sodium 136 L Potassium 3.7 Chloride 105 Carbon Dioxide 25 BUN 16 Creatinine 0.90 Estimated GFR > 60.0 BUN/Creatinine Ratio 17.8 Glucose 93 Calcium 8.7 Magnesium 1.7 [facility] Medical History Patient denies medical problems Social History household members: spouse and children Smoking Status: Never smoker alcohol intake: current Discharge Plan Discharge Plan Patient Disposition: Home Provider Discharge Comment: You may use the oxycodone you have for pain at home. You may also use ibuprofen. You may also use over the counter pain medication as well or instead of the narcotic. Make sure you do not take more than 3000 mg of Acetaminophen (Tylenol) per day from any source. There may be Acetaminophen in your prescription pain medication, cold medications or headache remedies. Make sure to take your stool softener to prevent constipation from the narcotic pain medication. If you are not able have a bowel movement 24 hours after surgery, or you feel constipated please take an additional laxative such as MiraLax or Senna or milk of magnesia. Avoid any straining on the toilet. Avoid heavy lifting, pulling, or pushing more than 10 lbs or doing other activities that strain the abdomen or increase the abdominal pressure such as sit-ups, core work outs, and attempt to prevent frequent coughing for four weeks after surgery. If you have fevers, wound drainage or bleeding, intractable nausea/vomiting, or intractable pain please call the doctor's office or if symptoms are severe come into the ER. If you call after hours please choose the option to contact the surgeon motion and time study teacher rather than leaving a message. Do not drive unless you are pain-free off medication. No pool or tub for at least 2 weeks. Continue your vitamins. Consider eating yogurt daily Discharge orders & Medications Follow up/Referrals: Doctor Mccoy MD [Primary Care Provider] - Jeannie Woods MD [Physician] - 02/19/21 10:00 am (If you need to reach a doctor please call our office. If it is after hours please listen to the message and at the end of the message it will instruct you how to reach the doctor on-call for our practice. Have a pen and paper ready to write the telephone number down.) Diet/Activity/Treatments Diet: Diet as Tolerated Activity: Do not lift over 10 lb or strain for at least 4 weeks. Skin/Wound/Dressing Care Report to your healthcare provider any signs of infection, such as:: chills, fever, night sweats, increased pain, unusual drainage and unusual redness Visit Report/Discharge Packet Instructions: DI for an Appendectomy, DI for Laparoscopy, DI for Prescription Opioid Use, [facility]: Wound Care Stand Alone Forms: Surgery Discharge Discharge Data Primary Care Provider: Miscellaneous,Doctor Quality VTE Deep Vein Thrombosis/Pulmonary Embolism Present on Admission: Yes
--- NOTE | 2021-02-08 14:20 | PC.NURSE ---
Pt received resting in bed with spouse and infant at bedside, easily awakened A&Ox4. She reports abdominal pain 4-5/10 this shift well controlled with PRN oxycodone 5mg. Freedom drain with 100 cc serosanguineous drainage out put. BS + hypoactive x4. Tolerating meals well and IV abx without s/sx of reaction. VSS, afebrile. cleared patient for discharge. RENATA drain dc'd.Patient tolerated well. Patient and spouse verbalized understanding of discharge instructions, activity, medications, incision site care, and follow up instructions. ONCOLOGY PHYSICIAN ASSISTANT escorted patient via wheel chair out of facility with all of belongings to private vehicle with spouse.
--- NOTE | 2021-02-16 11:48 | PC.NURSE ---
Late Entry; Zosyn infusion initiated 02/06 at 22:59, complete at 23:30. LR infusion initiated 02/07 at 03:32, stopped by MD order at 09:16.
== END 2021-02-08 13:20 | disposition home or self-care (01) ==
LOC: ED 20:00 → AC 22:43
PROVIDERS: Emergency Medicine; Admitting Provider Surgery; Emergency Provider Emergency Medicine; Referring Provider Emergency Medicine; Visit Provider Surgery
PROC: 0DTJ4ZZ Resection of Appendix, Percutaneous Endoscopic Approach (ICD-10-PCS; CPT 44970; principal; 2021-02-06 23:15)
DX: K35.890 Other acute appendicitis without perforation or gangrene (principal); F32.9 Major depressive disorder, single episode, unspecified
CPT/HCPCS: 44970; 36415; 74177; 80048; 80053; 81003; 81015; 83605; 83690; 83735; 85025; 87635; 96361; 96365; 96366; 96375; 99219; 99283; 99284; C9803; G0378; C9290; J0330; J1100; J2175; J2250; J2405; J2543; J2704; J3010; Q9967

== ENCOUNTER 2022-07-15 14:36 | Emergency (ER) | payer BC, SELFPAY ==
[2021-02-07 02:40] VITALS: BMI 27.3
[2022-07-15 14:39] VITALS: BP 134/82; PULSE 81; RESP 14; TEMP 36.6; O2SAT 99; BMI 23.5
--- NOTE | 2022-07-15 14:46 | DI.RAD.S_ITS ---
PROCEDURE: XR CHEST 1V INDICATIONS: chest pain TECHNIQUE: One view of the chest was acquired. COMPARISON: None. FINDINGS: Surgical changes and devices: None. Lungs and pleura: Lungs are clear. No pleural effusions or pneumothorax. Mediastinum: Mediastinal contours appear normal. Heart size is normal. Bones and chest wall: No suspicious bony lesions. Overlying soft tissues appear unremarkable. IMPRESSION: No acute pulmonary process. Dictated by: Desi Sanchez M.D. on 07/15/2022 at 15:36 Approved by: Desi Sanchez M.D. on 07/15/2022 at 15:37
--- NOTE | 2022-07-15 15:00 | ED.CHESTPAIN ---
HPI - Chest Pain General Chief Complaint: Chest Pain Stated Complaint: Covid+ day 12 chest pain Time Seen by Provider: 07/15/22 14:56 Source: patient Mode of arrival: Ambulatory Limitations: no limitations History of Present Illness HPI narrative: 32-year-old female nonsmoker presents with chest pressure that has been present for about the past week persistently. She denies any obvious provocation, palliation or radiation but states it goes across her anterior chest and has been persistent. Additionally, she has episodes of a more sharp and stabbing pain that seemed to come and go, also without any obvious provocation or palliation or radiation. She denies any dizziness, weakness or lightheadedness. She is had no significant cough or shortness of breath. She denies any ongoing nausea, vomiting or diarrhea. She states that last week she started having widespread classic symptoms for COVID including body aches and cough among others and was found to be positive on . Given the rapid onset of symptoms and a lengthy conversation with her primary care provider she started PAXLOVID. She states that she has had recent travel and takes control but denies smoking, trauma, hospitalization, cancer or prior clot. She denies any exercise intolerance. Related Data Home Medications Medication Instructions Recorded Confirmed No Known Home Medications 02/19/21 02/19/21 Allergies Allergy/AdvReac Type Severity Reaction Status Date / Time red dye Allergy Severe Rash Verified 07/15/22 14:44 amoxicillin Allergy Intermediate Verified 07/15/22 14:44 Review of Systems Review of Systems Narrative: GENERAL: See HPI s. HEENT: Denies sinus pain, ear pain, sore throat, difficulty swallowing, dizziness. RESPIRATORY: See HPI CARDIOVASCULAR: See HPI GASTROINTESTINAL: Denies nausea, vomiting, abdominal pain, diarrhea, constipation, melena. : Denies dysuria, frequency, incontinence, hematuria, urinary retention. MUSCULOSKELETAL: denies weakness, joint pain, or bony pain SKIN: Denies rash, skin lesions, or other NEUROLOGIC: Denies weakness, headache, numbness, change in speech, confusion, seizures, incoordination. PSYCHIATRIC: No concerning psychosocial issues. 12 point review of systems is negative except for those stated above Patient History Medical History Acute appendicitis Acute appendicitis with generalized peritonitis Patient denies medical problems Social History household members: spouse and children Smoking Status: Never smoker alcohol intake: current Smoking Status: Never smoker alcohol intake frequency: holidays/special occasions only Substance Use Type: does not use Exam Narrative Exam Narrative: GENERAL: [32] year old patient appears stated age. Well-developed patient, in mild distress. HEAD: Atraumatic. Normocephalic. EYES: Pupils equal round and reactive. Extraocular motions intact. No scleral icterus. No injection or drainage. ENT: Nose without bleeding, purulent drainage. Throat without erythema, tonsillar hypertrophy or exudate. Airway patent. NECK: Trachea midline. Non tender CARDIOVASCULAR: Regular rate and rhythm without murmurs, gallops, or rubs. RESPIRATORY: Clear to auscultation. Breath sounds equal bilaterally. No wheezes, rales, or rhonchi. GASTROINTESTINAL: Abdomen soft, non-tender, nondistended. EXTREMITIES: No edema or joint tenderness. BACK: Nontender without deformity or crepitance. No flank tenderness. NEURO: AOx3. SKIN: No rash or erythema of visible areas Initial Vital Signs Initial Vital Signs: Vital Signs Temperature 97.9 F 07/15/22 14:39 Pulse Rate 81 07/15/22 14:39 Respiratory Rate 14 07/15/22 14:39 Blood Pressure 134/82 07/15/22 14:39 Pulse Oximetry 99 07/15/22 14:39 Oxygen Delivery Method 07/15/22 14:39 Scores HEART Score Heart Score history: Slightly Suspicious Heart Score EKG: Normal Heart Score Age: < 45 years old Heart Score risk factors: No known risk factors Heart Score troponin: < or = to normal limit Heart Score Total: 0 Course Orders Ordered: ED Orders 07/15/22 14:46 XR chest 1V Stat EKG-12 Lead Stat 07/15/22 14:50 CRP [C-Reactive Protein Quant] Stat Complete Blood Count AUTO DIFF Stat Comprehensive Metabolic Panel Stat D Dimer Stat ESR [Erythrocyte Sedimentation Rate] Stat Lipase Stat Magnesium Stat Partial Thromboplastin Time Stat Prothrombin Time INR Stat Troponin & CK Cardiac Panel Stat Vital Signs Vital signs: Vital Signs - 8 hr 07/15/22 14:39 07/15/22 16:06 Temperature 97.9 F Pulse Rate 81 60 Respiratory Rate 14 16 Blood Pressure 134/82 105/58 L Pulse Oximetry 99 100 Oxygen Delivery Method Room Air Room Air MDM - Chest Pain Lab Data Result diagrams: 07/15/22 14:50 07/15/22 14:50 Labs: Lab Results 07/15/22 07/15/22 07/15/22 Range/Units 14:50 14:50 14:50 WBC 4.8 (4.5-11.0) X10^3/uL RBC 4.51 (4.0-5.2) X10^6/uL Hgb 14.5 (12.0-16.0) g/dL Hct 41.6 (36-46) % MCV 92.2 (80-100) fL MCH 32.1 (26-34) PG MCHC 34.8 (30-36) % RDW 12.2 (11.6-14.8) % Plt Count 191 (150-400) X10^3/uL Neut % (Auto) 38.6 L (50-75) % Lymph % (Auto) 48.6 H (25-40) % [place] % (Auto) 10.4 (3-14) % Eos % (Auto) 1.6 L (2-4) % Baso % (Auto) 0.8 (0-2) % Neut # (Auto) 1800 (2153-0264) /uL Lymph # (Auto) 2300 (0239-5693) /uL [place] # (Auto) 500 (0-900) /uL Eos # (Auto) 100 (0-450) /uL Baso # (Auto) 0 (0-100) /uL ESR (0-20) MM/HR PT 11.1 (10.1-12.7) SECONDS INR 1.0 (0.9-1.3) APTT 31 (26-36) SECONDS D-Dimer (<500) ng/ml Sodium 141 (137-145) mmol/L Potassium 3.8 (3.4-5.1) mmol/L Chloride 105 (98-107) mmol/L Carbon Dioxide 28 (22-32) mmol/L BUN 13 (7-17) mg/dL Creatinine 0.78 (0.52-1.04) mg/dL Estimated GFR > 60 (>60) mL/min BUN/Creatinine Ratio 16.7 (6-22) Glucose 62 L (70-100) mg/dL Calcium 9.1 (8.4-10.2) mg/dL Magnesium 1.8 (1.6-2.3) mg/dL Total Bilirubin 0.5 (0.2-1.3) mg/dL AST 26 (14-36) IU/L ALT 17 (<35) IU/L Alkaline Phosphatase 29 L (38-126) U/L Total Creatine Kinase 38 (30-135) U/L CK-MB (CK-2) TNP CK-MB (CK-2) Rel Index TNP Troponin I < 0.012 (0.01-0.034) ng/mL C-Reactive Protein (<1.0) mg/dL Total Protein 7.6 (6.3-8.2) g/dL Albumin 4.3 (3.5-5.0) g/dL Globulin 3.3 (1.7-4.1) g/dL Albumin/Globulin Ratio 1.3 (1.0-2.8) Lipase 147 (23-300) U/L 07/15/22 07/15/22 07/15/22 Range/Units 14:50 14:50 14:50 WBC (4.5-11.0) X10^3/uL RBC (4.0-5.2) X10^6/uL Hgb (12.0-16.0) g/dL Hct (36-46) % MCV (80-100) fL MCH (26-34) PG MCHC (30-36) % RDW (11.6-14.8) % Plt Count (150-400) X10^3/uL Neut % (Auto) (50-75) % Lymph % (Auto) (25-40) % [place] % (Auto) (3-14) % Eos % (Auto) (2-4) % Baso % (Auto) (0-2) % Neut # (Auto) (8576-4992) /uL Lymph # (Auto) (5940-7345) /uL [place] # (Auto) (0-900) /uL Eos # (Auto) (0-450) /uL Baso # (Auto) (0-100) /uL ESR 7 (0-20) MM/HR PT (10.1-12.7) SECONDS INR (0.9-1.3) APTT (26-36) SECONDS D-Dimer 427 (<500) ng/ml Sodium (137-145) mmol/L Potassium (3.4-5.1) mmol/L Chloride (98-107) mmol/L Carbon Dioxide (22-32) mmol/L BUN (7-17) mg/dL Creatinine (0.52-1.04) mg/dL Estimated GFR (>60) mL/min BUN/Creatinine Ratio (6-22) Glucose (70-100) mg/dL Calcium (8.4-10.2) mg/dL Magnesium (1.6-2.3) mg/dL Total Bilirubin (0.2-1.3) mg/dL AST (14-36) IU/L ALT (<35) IU/L Alkaline Phosphatase (38-126) U/L Total Creatine Kinase (30-135) U/L CK-MB (CK-2) CK-MB (CK-2) Rel Index Troponin I (0.01-0.034) ng/mL C-Reactive Protein < 0.5 (<1.0) mg/dL Total Protein (6.3-8.2) g/dL Albumin (3.5-5.0) g/dL Globulin (1.7-4.1) g/dL Albumin/Globulin Ratio (1.0-2.8) Lipase (23-300) U/L MDM Narrative Medical decision making narrative: Patient has very reassuring history and physical exam with negative troponin, heart score 0. Multiple causes of chest pain considered including VT, PE, pneumothorax, pneumonia, aortic dissection, and pleurisy. Patient reports no radiation, no diaphoresis, no provocation with exertion, and no vomiting. Pulmonary embolism considered but thought unlikely given reassuring D-dimer, no indication for advanced imaging. Other diagnoses such as pericarditis considered but thought less likely given lack of classic findings or elevated inflammatory markers. Extensive return precautions discussed and questions answered to her apparent satisfaction Discharge Plan Departure Patient Disposition: Home Clinical Impression: Atypical chest pain Instructions: DI for Atypical Chest Pain Activity Restrictions/Additional Instructions: *You have been diagnosed with [atypical chest pain. As we discussed your history, physical exam, labs and imaging are very reassuring and there is no indication of heart attack, blood clot, pericarditis or other diagnosis that would require a specific or immediate intervention *What to do: *Please continue to take your regular medications as directed. *Please follow up with your primary care provider in 2-3 days, call for an appointment. Let them know you were seen in the Emergency Department and that we ask that you be seen in follow up. We will electronically transmit a record of today's note if your PCP is in our system *If you do not have a primary care provider please contact the [facility] Resource line at [phone]. They will ask some questions about your medical history and help get you set up with a doctor in the community. *Return to Emergency Department if you should have any new, worsening or concerning symptoms, such as [fever greater than 101 F, shaking chills, worsening pain, persistent vomiting or other bothersome symptoms] Prescriptions: No Action No Known Home Medications
[2022-07-15 15:08] LABS: Add Manual Diff / Slide Review NO; Basophils Absolute Auto 0 /uL (0-100); Basophils Percent Auto 0.8 % (0-2); Eosinophils Absolute Auto 100 /uL (0-450); Eosinophils Percent Auto 1.6 % (2-4); Hematocrit 41.6 % (36-46); Hemoglobin 14.5 g/dL (12.0-16.0); Lymphocytes Absolute Auto 2300 /uL (1100-4500); Lymphocytes Percent Auto 48.6 % (25-40); Mean Corpuscular HGB Conc 34.8 % (30-36); Mean Corpuscular Hemoglobin 32.1 PG (26-34); Mean Corpuscular Volume 92.2 fL (80-100); Monocytes Absolute Auto 500 /uL (0-900); Monocytes Percent Auto 10.4 % (3-14); Neutrophils Absolute Auto 1800 /uL (1500-7000); Neutrophils Percent Auto 38.6 % (50-75); Platelet Count 191 X10^3/uL (150-400); Red Blood Cell Count 4.51 X10^6/uL (4.0-5.2); Red Cell Distribution Width 12.2 % (11.6-14.8); White Blood Cell Count 4.8 X10^3/uL (4.5-11.0)
[2022-07-15 15:16] LABS: Prothrombin Time 11.1 SECONDS (10.1-12.7)
[2022-07-15 15:19] LABS: D Dimer 427 ng/ml (<500); PTT Partial Thromboplastin Tim 31 SECONDS (26-36)
[2022-07-15 15:23] LABS: Alanine Aminotransferase 17 IU/L (<35); Albumin 4.3 g/dL (3.5-5.0); Albumin Globulin Ratio 1.3 (1.0-2.8); Alkaline Phosphatase 29 U/L (38-126); Aspartate Aminotransferase 26 IU/L (14-36); BUN Creatinine Ratio 16.7 (6-22); Bilirubin Total 0.5 mg/dL (0.2-1.3); Blood Urea Nitrogen 13 mg/dL (7-17); Calcium 9.1 mg/dL (8.4-10.2); Carbon Dioxide 28 mmol/L (22-32); Chloride 105 mmol/L (98-107); Creatine Kinase 38 U/L (30-135); Estimated Glomerular Filt Rate > 60 mL/min (>60); Globulin 3.3 g/dL (1.7-4.1); Glucose 62 mg/dL (70-100); HEMOLYSIS < 15 (0-50); Lipase 147 U/L (23-300); Magnesium 1.8 mg/dL (1.6-2.3); Potassium 3.8 mmol/L (3.4-5.1); Sodium 141 mmol/L (137-145); Total Protein 7.6 g/dL (6.3-8.2)
[2022-07-15 15:25] LABS: C-Reactive Protein Quant < 0.5 mg/dL (<1.0)
[2022-07-15 15:29] LABS: Erythrocyte Sedimentation Rate 7 MM/HR (0-20)
[2022-07-15 15:34] LABS: Troponin I < 0.012 ng/mL (0.01-0.034)
[2022-07-15 16:06] VITALS: BP 105/58; PULSE 60; RESP 16; O2SAT 100
== END 2022-07-15 16:23 | disposition home or self-care (01) ==
PROVIDERS: Emergency Provider Emergency Medicine
DX: R07.89 Other chest pain (principal); U07.1 COVID-19
CPT/HCPCS: 36415; 71045; 80053; 82550; 83690; 83735; 84484; 85025; 85379; 85610; 85651; 85730; 86140; 93005; 99283; 99284

== ENCOUNTER → 2023-12-03 11:11 | Outpatient (CLI) | payer BC, SELFPAY ==
[2021-02-07 02:40] VITALS: BMI 27.3
[2023-12-03 11:43] LABS: Add Manual Diff / Slide Review NO; Basophils Absolute Auto 0 /uL (0-100); Basophils Percent Auto 0.3 % (0-2); Eosinophils Absolute Auto 0 /uL (0-450); Eosinophils Percent Auto 0.7 % (2-4); Hematocrit 37.5 % (36-46); Hemoglobin 13.3 g/dL (12.0-16.0); Lymphocytes Absolute Auto 1400 /uL (1100-4500); Mean Corpuscular HGB Conc 35.5 % (30-36); Mean Corpuscular Hemoglobin 32.8 PG (26-34); Mean Corpuscular Volume 92.5 fL (80-100); Monocytes Absolute Auto 600 /uL (0-900); Monocytes Percent Auto 7.7 % (3-14); Neutrophils Absolute Auto 5400 /uL (1500-7000); Neutrophils Percent Auto 72.3 % (50-75); Platelet Count 237 X10^3/uL (150-400); Red Blood Cell Count 4.05 X10^6/uL (4.0-5.2); Red Cell Distribution Width 12.4 % (11.6-14.8); White Blood Cell Count 7.5 X10^3/uL (4.5-11.0)
[2023-12-03 11:56] LABS: Hemoglobin A1C% w Est Avg Glu 4.6 % (4.0-6.0)
[2023-12-03 17:36] LABS: Hepatitis B Surface Antigen NEGATIVE s/c (NEGATIVE); Rubella Antibody IgG 31.1 IU/mL (>15)
[2023-12-03 18:09] LABS: HIV 1 & 2 Ab/Ag 4th Gen Combo NEGATIVE (NEGATIVE); Hep C Virus Ab w/Reflex Quant NEGATIVE s/c (NEGATIVE)
[2023-12-04 05:16] LABS: RPR Screen Non Reactive (Non Reactive)
[2023-12-04 09:17] LABS: Varicella IgG Antibody 259 index (Immune >165)
== END ==
PROVIDERS: Referring Provider Student in an Organized Health Care Education/Training Program; Visit Provider Student in an Organized Health Care Education/Training Program
DX: O09.299 Supervision of pregnancy with other poor reproductive or obstetric history, unspecified trimester (principal); O34.219 Maternal care for unspecified type scar from previous cesarean delivery
CPT/HCPCS: 36415; 80055; 83036; 86787; 86803; 86850; 86900; 86901; 87086; 87389

== ENCOUNTER → 2024-02-18 14:14 | Outpatient (CLI) | payer BC, SELFPAY ==
[2021-02-07 02:40] VITALS: BMI 27.3
--- NOTE | 2024-02-18 14:15 | DI.US.S_ITS ---
PROCEDURE: US OB >= 14 WEEKS FETUS INDICATIONS: 20 week anatomy OUTSIDE/PRIOR DATING DATA: Last menstrual period (LMP): 10/02/2023. LMP-based estimated date of delivery (ANNETTE): 07/08/2024. First dating scan (date and location): 12/03/2023. Estimated date of delivery (ANNETTE) from first dating scan: 07/04/2024. The calculations are made using the clinical ANNETTE of 07/08/2024. TECHNIQUE: Real-time scanning was performed of the fetus, with image documentation and biometric measurements. Endovaginal scanning: Not performed COMPARISON: [facility], , OB <= 14 WEEKS FETUS, 12/03/2023, 10:52. FINDINGS: General: A single living intrauterine gestation is present. Presentation: Vertex. Spine right. Placenta: Placental position is posterior, without previa. Amniotic fluid index: 11.1 cm, normal range is 5-24 cm. Single deepest vertical pocket is 3.4 cm. heart rate: 139 beats per minute. Maternal cervical canal: 5 cm long. Normal lower limit is 2.5 cm. biometrics: Biparietal diameter: 4.6 cm, a hand weeks 6 days Head circumference: 18.7 cm, 21 weeks 0 days Abdominal circumference: 16.1 cm, 21 weeks 1 day Femur length: 3.5 cm, 20 weeks 6 days Clinically estimated gestational age: 19 weeks 6 days Composite gestational age from present scan: 20 weeks 5 days Estimated weight and percentile: 392 g, 96 percentile. Anatomic survey: Neuro: Ventricles are non-dilated at less than 10 mm. Cisterna magna is normal at 3-11 mm. Cerebellum is normal in size and morphology. Nuchal skin fold: Normal at less than 6 mm between 14-21 weeks gestational age. Face: Nose and lips, facial profile are normal. Spine: No evidence for spina bifida. Heart: 4-chambered heart is present RVOT not visualized. LVOT not well seen. Diaphragm: Diaphragm is intact. Stomach: Left-sided stomach is present. Kidneys: No hydronephrosis. Normal is less than 5 mm in 2nd trimester, less than 7 mm in 3rd trimester. Cord: 3-vessel cord has orthotopic insertion. Bladder: Normal in size. Extremities: All 4 extremities identified. IMPRESSION: 1. Rangel living intrauterine at 20 weeks 5 days based on today's ultrasound. This is concordant with the prior dating. The fetus is in the 96 percentile for weight. This is concerning for macrosomia. 2. Normal placenta and amniotic fluid. 3. cardiac outflow tracts are not well seen due to lie. Otherwise normal anatomic survey. Recommend follow-up OB ultrasound. We strive to produce accurate, complete, and clear reports of imaging services. To assist us in improving patient care, this report was composed using standard report templates and voice recognition software. Therefore, it may contain abnormal punctuation, insertions and/or omissions. Occasional wrong-word or sound-alike substitutions may occur. Though we review the report and make efforts to correct it, we do recommend that the report be read carefully in proper context to recognize any text inaccuracies. Dictated by: Collin Esparza M.D. on 02/18/2024 at 17:09 Approved by: Collin Esparza M.D. on 02/18/2024 at 17:15
== END ==
PROVIDERS: Referring Provider Student in an Organized Health Care Education/Training Program; Visit Provider Student in an Organized Health Care Education/Training Program
DX: Z34.82 Encounter for supervision of other normal pregnancy, second trimester (principal); Z3A.20 20 weeks gestation of pregnancy
CPT/HCPCS: 76811

== ENCOUNTER → 2024-02-29 14:17 | Outpatient (CLI) | payer BC, SELFPAY ==
[2021-02-07 02:40] VITALS: BMI 27.3
--- NOTE | 2024-02-29 14:18 | DI.US.S_ITS ---
PROCEDURE: US OB FOLLOW UP INDICATIONS: insufficient cardiac views OUTSIDE/PRIOR DATING DATA: Last menstrual period (LMP): October 02, 2023. LMP-based estimated date of delivery (ANNETTE): July 08, 2024 First dating scan (date and location): December 03, 2023 Estimated date of delivery (ANNETTE) from first dating scan: July 04, 2024 TECHNIQUE: Real-time scanning was performed of the fetus, with image documentation. Endovaginal scanning: Not performed COMPARISON: None. FINDINGS: A single living intrauterine gestation is present. Presentation: Transverse, head to the right Placenta: Placental position is posterior. The inferior placental margin is 1.1 cm from the cervical os. Amniotic fluid index: 12.5 cm, normal range is 5-24 cm. Single deepest vertical pocket is 4.8 cm. heart rate: 133 beats per minute. Maternal cervical canal: 5.9 cm long. Normal lower limit is 2.5 cm. Estimated gestational age from initial scan: 21 weeks, 3 days. The four-chamber heart and the ventricular outflow tracks have a normal sonographic appearance. IMPRESSION: 1. Four-chamber heart and ventricular outflow tracks have a normal appearance. 2. Low lying placenta. The inferior placental margin is 1.1 cm from the cervical os. Dictated by: Mariela Downing M.D. on 02/29/2024 at 17:17 Approved by: Mariela Downing M.D. on 02/29/2024 at 17:20
== END ==
PROVIDERS: Referring Provider Family Medicine; Visit Provider Family Medicine
DX: O44.42 Low lying placenta NOS or without hemorrhage, second trimester (principal); Z3A.21 21 weeks gestation of pregnancy
CPT/HCPCS: 76816

== ENCOUNTER → 2024-03-09 15:06 | Outpatient (CLI) | payer BC, SELFPAY ==
[2021-02-07 02:40] VITALS: BMI 27.3
[2024-03-09 16:08] LABS: Alanine Aminotransferase 13 IU/L (<35); Albumin 4.1 g/dL (3.5-5.0); Albumin Globulin Ratio 1.4 (1.0-2.8); Alkaline Phosphatase 50 U/L (38-126); Aspartate Aminotransferase 26 IU/L (14-36); Bilirubin Total 0.9 mg/dL (0.2-1.3); Bilirubin Unconjugated 0.6 mg/dL (0.0-1.1); HEMOLYSIS < 15 (0-50); Total Protein 7.1 g/dL (6.3-8.2)
[2024-03-11 14:47] LABS: Bile Acids 5.4 umol/L (0.0-10.0)
== END ==
PROVIDERS: Referring Provider Student in an Organized Health Care Education/Training Program; Visit Provider Student in an Organized Health Care Education/Training Program
DX: O99.712 Diseases of the skin and subcutaneous tissue complicating pregnancy, second trimester (principal); L29.9 Pruritus, unspecified; L50.9 Urticaria, unspecified
CPT/HCPCS: 36415; 80076; 82239

== ENCOUNTER → 2024-03-30 15:16 | Outpatient (CLI) | payer BC, SELFPAY ==
[2021-02-07 02:40] VITALS: BMI 27.3
[2024-03-30 18:18] LABS: GTT (PREG) 1 Hour PP 50gm Dose 91 mg/dL (76-139)
== END ==
PROVIDERS: Referring Provider Student in an Organized Health Care Education/Training Program; Visit Provider Student in an Organized Health Care Education/Training Program
DX: Z34.92 Encounter for supervision of normal pregnancy, unspecified, second trimester (principal); Z3A.26 26 weeks gestation of pregnancy
CPT/HCPCS: 36415; 82950

== ENCOUNTER → 2024-05-05 11:35 | Outpatient (CLI) | payer BC, SELFPAY ==
[2021-02-07 02:40] VITALS: BMI 27.3
[2024-05-05 13:56] LABS: Hematocrit 28.5 % (36-46)
== END ==
PROVIDERS: Referring Provider Student in an Organized Health Care Education/Training Program; Visit Provider Student in an Organized Health Care Education/Training Program
DX: Z34.90 Encounter for supervision of normal pregnancy, unspecified, unspecified trimester (principal); Z3A.26 26 weeks gestation of pregnancy
CPT/HCPCS: 36415; 85014; 85018

== ENCOUNTER → 2024-05-10 14:50 | Outpatient (CLI) | payer BC, SELFPAY ==
[2021-02-07 02:40] VITALS: BMI 27.3
--- NOTE | 2024-05-10 14:51 | DI.US.S_ITS ---
PROCEDURE: US OB FOLLOW UP INDICATIONS: EFW, LOW-LYING PLACENTA, RVOT OUTSIDE/PRIOR DATING DATA: Last menstrual period (LMP): 10/02/2023 LMP-based estimated date of delivery (ANNETTE): 07/08/2024 First dating scan (date and location): 12/03/2023 Estimated date of delivery (ANNETTE) from first dating scan: 07/04/2024 The calculations are made using the working ANNETTE of 07/08/2024 TECHNIQUE: Real-time scanning was performed of the fetus, with image documentation and biometric measurements. Endovaginal scanning: Not performed COMPARISON: [facility], , OB FOLLOW UP, 02/29/2024, 14:28. FINDINGS: General: A single living intrauterine gestation is present. Presentation: Vertex. Placenta: Placental position is posterior, without previa. Posterior placental edge is now approximately 7.9 cm from internal os. Amniotic fluid index: 13.4 cm, normal range is 5-24 cm. Single deepest vertical pocket is 6.5 cm. heart rate: 128 beats per minute. Maternal cervical canal: Closed and measures 4.2 cm long. Normal lower limit is 2.5 cm. biometrics: Biparietal diameter: 7.9 cm, 31 weeks, 5 days Head circumference: 29.7 cm, 32 weeks, 6 days Abdominal circumference: 27.5 cm, 31 weeks, 4 days Femur length: 6.2 cm, 32 weeks, 1 day Clinically estimated gestational age: 31 weeks, 4 days Composite gestational age from present scan: 32 weeks, 1 day Estimated weight and percentile: 1861 g, 49% Other: Not applicable. IMPRESSION: 1. Single live intrauterine gestation with fetus in vertex presentation. heart rate is 128 beats per minute. Normal MATT at 13.4 cm. Normal growth with estimated weight measured at 49%. 2. Posterior placenta with inferior placental edge now approximately 7.9 cm from internal os. No low lying placenta is seen. We strive to produce accurate, complete, and clear reports of imaging services. To assist us in improving patient care, this report was composed using standard report templates and voice recognition software. Therefore, it may contain abnormal punctuation, insertions and/or omissions. Occasional wrong-word or sound-alike substitutions may occur. Though we review the report and make efforts to correct it, we do recommend that the report be read carefully in proper context to recognize any text inaccuracies. Dictated by: Myles Myers M.D. on 05/10/2024 at 18:38 Approved by: Myles Myers M.D. on 05/10/2024 at 18:41
== END ==
PROVIDERS: Referring Provider Student in an Organized Health Care Education/Training Program; Visit Provider Student in an Organized Health Care Education/Training Program
DX: Z36.2 Encounter for other antenatal screening follow-up (principal); Z3A.32 32 weeks gestation of pregnancy
CPT/HCPCS: 76816

== ENCOUNTER 2025-05-18 07:57 | Emergency (ER) | payer BC, SELFPAY ==
[2021-02-07 02:40] VITALS: BMI 27.3
[2025-05-18] VITALS (7 sets, daily range): BP systolic 110–128; BP diastolic 61–73; PULSE 62–103; RESP 16–18; TEMP 36.7–36.8; O2SAT 96–100; BMI 26.6
--- NOTE | 2025-05-18 08:04 | ED.FEMALEGU ---
HPI - Female Genitourinary General Chief complaint: Vaginal Bleeding Stated complaint: Per patient, Having miscarriage 13 weeks Time Seen by Provider: 05/18/25 08:00 History of Present Illness HPI Narrative: 34-year-old estimated due date December 02 with known high potential for miscarriage this was told at 10 weeks she most likely is miscarrying presents with lemon sized blood clots, feeling lightheaded, dizzy, shortness of breath, and feeling like she is going to pass out 12 hours ago. She has gone through 1 pad an hour approximately. Other than what is stated 14 point review of system is negative. Related Data Home Medications ?Medication ?Instructions ?Recorded ?Confirmed cholecalciferol (vitamin D3) 50 100 mcg PO DAILY 11/11/23 05/05/24 mcg (2,000 unit) capsule levomefolate calcium 15 mg tablet 15 mg PO DAILY 11/11/23 05/05/24 (L-Methylfolate) vitamin-ferrous sulfate tab PO 11/11/23 05/05/24 27 mg iron-folic acid 0.8 mg tablet Allergies Allergy/AdvReac Type Severity Reaction Status Date / Time red dye Allergy Severe Rash Verified 05/18/25 08:08 Review of Systems Review of Systems ROS Unobtainable: All systems reviewed & are unremarkable except as noted in HPI and below Patient History Medical History (Updated 05/18/25 @ 10:43 by Carlos Ambrose, DO) Headache (~1999) Chicken pox (~1995) (vaginal after ) hemorrhage anxiety depression Migraine without aura Acute appendicitis Acute appendicitis with generalized peritonitis Surgical History (Updated 12/27/23 @ 21:06 by Brianna Bundy) Anesthesia Pericarditis (~2004) [place] teeth extracted Previous section (~2018) History of appendectomy (~2020) Family History (Updated 12/27/23 @ 21:13 by Brianna Bundy) Father Hypertension Hyperlipidemia Mother Healthy adult Congenital hip dysplasia Depression Anxiety Mental health problem Grandfather Hyperlipidemia Hypertension Heart attack Stroke Glaucoma History of heart disease Grandmother Cardiac arrhythmia Glaucoma Mental health problem Grandfather Unknown whether patient has any health problems Mental health problem Grandmother Accidental Exam Narrative Exam Narrative: GENERAL: [34] year old patient appears stated age. Well-developed patient, in mild distress. HEAD: Atraumatic. Normocephalic. EYES: Pupils equal round and reactive. Extraocular motions intact. No scleral icterus. No injection or drainage. ENT: Nose without bleeding, purulent drainage. Throat without erythema, tonsillar hypertrophy or exudate. Airway patent. NECK: Trachea midline. Non tender CARDIOVASCULAR: Regular rate and rhythm without murmurs, gallops, or rubs. RESPIRATORY: Clear to auscultation. Breath sounds equal bilaterally. No wheezes, rales, or rhonchi. GASTROINTESTINAL: Abdomen soft, non-tender, nondistended. EXTREMITIES: No edema or joint tenderness. BACK: Nontender without deformity or crepitance. No flank tenderness. NEURO: AOx3. SKIN: No rash or erythema of visible areas Initial Vital Signs Initial Vital Signs: Vital Signs Pulse Rate 103 H 05/18/25 08:02 Pulse Oximetry 100 05/18/25 08:02 Course Orders Ordered: ED Orders 05/18/25 08:14 Complete Blood Count AUTO DIFF Stat Comprehensive Metabolic Panel Stat HCG Quantitative /Beta subunit Stat Type and Screen Stat 05/18/25 08:17 US OB limited Stat Vital Signs Vital signs: Vital Signs - 8 hr 05/18/25 08:02 05/18/25 08:03 05/18/25 09:45 Temperature 98.0 F Pulse Rate 103 H 90 93 H Respiratory Rate 18 16 Blood Pressure 124/73 Pulse Oximetry 100 100 100 Oxygen Delivery Method Room Air 05/18/25 09:46 05/18/25 09:46 05/18/25 10:14 Temperature Pulse Rate 90 93 H Respiratory Rate Blood Pressure 128/66 Pulse Oximetry 100 96 Oxygen Delivery Method 05/18/25 10:15 05/18/25 10:15 Temperature Pulse Rate 93 H Respiratory Rate 16 Blood Pressure 121/61 Pulse Oximetry 100 Oxygen Delivery Method Room Air MDM - Female Genitourinary Lab Data 05/18/25 08:14 05/18/25 08:14 Labs: Lab Results 05/18/25 Range/Units 08:14 WBC 11.6 H (4.5-11.0) X10^3/uL RBC 3.45 L (4.0-5.2) X10^6/uL Hgb 11.2 L (12.0-16.0) g/dL Hct 31.3 L (36-46) % MCV 90.6 (80-100) fL MCH 32.5 (26-34) PG MCHC 35.9 (30-36) % RDW 12.7 (11.6-14.8) % Plt Count 228 (150-400) X10^3/uL Neut % (Auto) 68.4 (50-75) % Lymph % (Auto) 22.0 L (25-40) % [place] % (Auto) 8.4 (3-14) % Eos % (Auto) 0.9 L (2-4) % Baso % (Auto) 0.3 (0-2) % Neut # (Auto) 8000 H (7367-6816) /uL Lymph # (Auto) 2600 (4468-9198) /uL [place] # (Auto) 1000 H (0-900) /uL Eos # (Auto) 100 (0-450) /uL Baso # (Auto) 0 (0-100) /uL Sodium 133 L (137-145) mmol/L Potassium 3.7 (3.4-5.1) mmol/L Chloride 102 (98-107) mmol/L Carbon Dioxide 21 L (22-32) mmol/L BUN 14 (7-17) mg/dL Creatinine 0.73 (0.52-1.04) mg/dL Estimated GFR > 60 (>60) mL/min BUN/Creatinine Ratio 19.2 (6-22) Glucose 109 H (70-99) mg/dL Calcium 8.9 (8.4-10.2) mg/dL Total Bilirubin 1.4 H (0.2-1.3) mg/dL AST 22 (14-36) IU/L ALT 12 (<35) IU/L Alkaline Phosphatase 40 (38-126) U/L Total Protein 6.8 (6.3-8.2) g/dL Albumin 4.2 (3.5-5.0) g/dL Globulin 2.6 (1.7-4.1) g/dL Albumin/Globulin Ratio 1.6 (1.0-2.8) HCG, Quant 92708 mIU/mL Blood Type A Positive Antibody Screen Negative Imaging Data US - abdomen: Radiologist's Impression: [address] [address] Ultrasound Report Signed Patient: Marge Berumen MR#: [id number] : 1990 Acct:[id number] Age/Sex: 34 / F Date of Service: 05/18/25 Loc: ED Accession Number: [id number] Procedure: US OB limited Ordering Provider: Carlos Ambrose D.O. PROCEDURE: US OB LIMITED INDICATIONS: miscarriage TECHNIQUE: Real-time scanning was performed of the fetus, with image documentation. Endovaginal scannin Images COMPARISON: No prior ultrasound for this FINDINGS: This is a limited exam. There is no intrauterine gestational sac, yolk sac or pole. Heterogeneous products of conception noted in the lower uterine segment, cervix and vaginal canal. Ovaries are not visualized. No gross abnormal free fluid in the pelvis IMPRESSION: Limited exam. No intrauterine . Products of conception lower uterine segment, cervix and vaginal canal. Presumed spontaneous miscarriage in progress. Follow-up suggested. Dictated by: Maskim Stock M.D. on 05/18/2025 at 9:57 MDM Narrative Medical decision making narrative: Vital signs, nurse triage note, medication list, previous ER visits, and all imaging studies reviewed. US shows POC seen in Cervix and vag canal. WBC 11.6 , hemoglobin 11.2, sodium 133, CO2 21 T bili of 1.4. Beta quant [id number]. Case discussed with Dr. Gonzalez who has seen the patient here in the ER close follow up as patient is refusing D and C at this time. No intrauterine .Products of conception lower uterine segment, cervix and vaginal canal. Presumed spontaneous miscarriage in progress. Differential dx complete vs incomplete miscarriage, retained POC. Discharge Plan Departure Patient Disposition: Home Clinical Impression: Incomplete miscarriage Instructions: DI for Miscarriage Activity Restrictions/Additional Instructions: Return with new or worsening symptoms. Follow up with Dr. Lisa lanier MD next week. Prescriptions: No Action vit-ferrous sulfat-FA 27 mg iron- 0.8 mg tablet PO levomefolate calcium [L-Methylfolate] 15 mg tablet 15 mg PO DAILY cholecalciferol (vitamin D3) 50 mcg (2,000 unit) capsule 100 mcg PO DAILY Stand Alone Forms: Patient Portal/API
--- NOTE | 2025-05-18 08:17 | DI.US.S_ITS ---
PROCEDURE: US OB LIMITED INDICATIONS: miscarriage TECHNIQUE: Real-time scanning was performed of the fetus, with image documentation. Endovaginal scannin Images COMPARISON: No prior ultrasound for this FINDINGS: This is a limited exam. There is no intrauterine gestational sac, yolk sac or pole. Heterogeneous products of conception noted in the lower uterine segment, cervix and vaginal canal. Ovaries are not visualized. No gross abnormal free fluid in the pelvis IMPRESSION: Limited exam. No intrauterine . Products of conception lower uterine segment, cervix and vaginal canal. Presumed spontaneous miscarriage in progress. Follow-up suggested. Dictated by: Maksim Stock M.D. on 05/18/2025 at 9:57 Approved by: Maksim Stock M.D. on 05/18/2025 at 10:04
[2025-05-18 08:23] LABS: Add Manual Diff / Slide Review NO; Hematocrit 31.3 % (36-46); Hemoglobin 11.2 g/dL (12.0-16.0); Lymphocytes Absolute Auto 2600 /uL (1100-4500); Mean Corpuscular HGB Conc 35.9 % (30-36); Mean Corpuscular Hemoglobin 32.5 PG (26-34); Mean Corpuscular Volume 90.6 fL (80-100); Platelet Count 228 X10^3/uL (150-400)
--- NOTE | 2025-05-18 08:23 | PC.NURSE ---
reports passing clots the size of a lemon to a peach seed. reports she had an ultrasound and the baby had no heart beat approx. 5 weeks ago.
[2025-05-18 08:41] LABS: Alanine Aminotransferase 12 IU/L (<35); Albumin 4.2 g/dL (3.5-5.0); Albumin Globulin Ratio 1.6 (1.0-2.8); Alkaline Phosphatase 40 U/L (38-126); Blood Urea Nitrogen 14 mg/dL (7-17); Calcium 8.9 mg/dL (8.4-10.2); Carbon Dioxide 21 mmol/L (22-32); Chloride 102 mmol/L (98-107); Estimated Glomerular Filt Rate > 60 mL/min (>60); Globulin 2.6 g/dL (1.7-4.1); Glucose 109 mg/dL (70-99); HEMOLYSIS < 15 (0-50); Potassium 3.7 mmol/L (3.4-5.1); Sodium 133 mmol/L (137-145); Total Protein 6.8 g/dL (6.3-8.2)
[2025-05-18 08:57] LABS: HCG Quantitative /Beta subunit 11422 mIU/mL
--- NOTE | 2025-05-18 10:17 | PM.CN.IH.1 ---
History of Present Illness Consult details Date Patient Seen: 05/18/25 Time Patient Seen: 10:17 Chief complaint: Per patient, Having miscarriage 13 weeks Reason for consult: possible D&C Requesting provider: Carlos Ambrose Narrative: 34yo with known MAB, presented to the ER today for heavy vaginal bleeding overnight. She reports heavy bleeding, soaking through pads, and passing large lemon-sized clots. She prefers to avoid having surgery if possible. Meds Home Medications and Allergies Home Medications ?Medication ?Instructions ?Recorded ?Confirmed ?Type cholecalciferol (vitamin D3) 50 100 mcg PO DAILY 11/11/23 05/05/24 History mcg (2,000 unit) capsule levomefolate calcium 15 mg tablet 15 mg PO DAILY 11/11/23 05/05/24 History (L-Methylfolate) vitamin-ferrous sulfate tab PO 11/11/23 05/05/24 History 27 mg iron-folic acid 0.8 mg tablet Allergies Allergy/AdvReac Type Severity Reaction Status Date / Time red dye Allergy Severe Rash Verified 05/18/25 08:08 Review of Systems Review of Systems ROS: Yes All systems reviewed with the patient and are negative except as otherwise documented Exam Vital Signs (past 8 hours): - 05/18/25 08:03 Temperature 98.0 F Pulse Rate 90 Respiratory Rate 18 Blood Pressure 124/73 Pulse Oximetry 100 Oxygen Delivery Method Room Air Oxygen Delivery Method Room Air Const General: healthy appearing, comfortable and No acute distress Resp Effort & Inspection: normal respiratory effort and able to speak in complete sentences Skin General: No pallor Neuro Cognition: normal cognition Speech: speech normal Objective Imaging US - abdomen: My impression: No IUP seen at the fundus; large clot/tissue debris in the lower cervix/upper vagina Labs 05/18/25 08:14 05/18/25 08:14 Labs: Laboratory Results - last 24 hr 05/18/25 08:14 WBC 11.6 H RBC 3.45 L Hgb 11.2 L Hct 31.3 L MCV 90.6 MCH 32.5 MCHC 35.9 RDW 12.7 Plt Count 228 Neut % (Auto) 68.4 Lymph % (Auto) 22.0 L [place] % (Auto) 8.4 Eos % (Auto) 0.9 L Baso % (Auto) 0.3 Neut # (Auto) 8000 H Lymph # (Auto) 2600 [place] # (Auto) 1000 H Eos # (Auto) 100 Baso # (Auto) 0 Sodium 133 L Potassium 3.7 Chloride 102 Carbon Dioxide 21 L BUN 14 Creatinine 0.73 Estimated GFR > 60 BUN/Creatinine Ratio 19.2 Glucose 109 H Calcium 8.9 Total Bilirubin 1.4 H AST 22 ALT 12 Alkaline Phosphatase 40 Total Protein 6.8 Albumin 4.2 Globulin 2.6 Albumin/Globulin Ratio 1.6 HCG, Quant 62127 Blood Type A Positive Antibody Screen Negative [facility] Medical History (Updated 05/18/25 @ 10:20 by Ivana Wyatt DO) Headache (~1999) Chicken pox (~1995) (vaginal after ) hemorrhage anxiety depression Migraine without aura Acute appendicitis Acute appendicitis with generalized peritonitis Surgical History (Updated 12/27/23 @ 21:06 by Brianna Bundy) Anesthesia Pericarditis (~2004) [place] teeth extracted Previous section (~2018) History of appendectomy (~2020) Family History (Updated 12/27/23 @ 21:13 by Brianna Bundy) Father Hypertension Hyperlipidemia Mother Healthy adult Congenital hip dysplasia Depression Anxiety Mental health problem Grandfather Hyperlipidemia Hypertension Heart attack Stroke Glaucoma History of heart disease Grandmother Cardiac arrhythmia Glaucoma Mental health problem Grandfather Unknown whether patient has any health problems Mental health problem Grandmother Accidental Social History marital status: number of children: 2 household members: spouse and children lives independently: Yes housing: house pets and animals: Yes (dog) education level: college (bachelor's degree) 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) current occupational exposures/hazards: Yes (some homes w/ exposed insulation, mold, etc) special bartolome needs: No travel history: over 6 months ago Safety seatbelt use: always helmet use: Yes water heater temp set < 120 deg: Yes working smoke detector in home: Yes fire extinguisher in home: Yes carbon monox detector in home: Yes firearms in home: Yes firearms unloaded and locked: Yes do you feel safe at home: Yes Tobacco & Substance Use Smoking Status: Unknown if ever smoked second hand exposure: No alcohol intake: former (~1-3 week when not ) substance use type: does not use Diet and Exercise during the past year weight has: remained stable well-balanced diet: daily or most days daily servings fruits/ve-4 caffeine: No Type(s) of exercise: aerobic (self defense interval training and sparring) frequency: 1-2 times per week Assessment & Plan Assessment and plan (1) Spontaneous : Status: Acute Assessment & Plan narrative: 34yo [id number] with SAB, likely passed in the ER after her ultrasound. 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 -recommend discharge to home with routine precautions -follow-up will be scheduled for next week in the office Time-Based Coding :: [45min] spent with patient and on the chart (including review of chart, obtaining history, exam, reviewing outside data, placing orders, documenting exam and treatment plan, and counseling patient) on [05/18/25]. PROFEE Charge Codes Inpatient or Observation consultation: [id number]
== END 2025-05-18 11:11 | disposition home or self-care (01) ==
PROVIDERS: Emergency Provider Family Medicine
DX: O03.4 Incomplete spontaneous abortion without complication (principal)
CPT/HCPCS: 76815; 80053; 84702; 85025; 86850; 86900; 86901; 99283; 99284

== ENCOUNTER → 2025-07-14 14:57 | Outpatient (CLI) | payer BC, SELFPAY ==
[2021-02-07 02:40] VITALS: BMI 27.3
[2025-07-14 17:02] LABS: HCG Quantitative /Beta subunit 37.71 mIU/mL
== END ==
PROVIDERS: PCP Naturopath; Referring Provider Obstetrics & Gynecology; Visit Provider Obstetrics & Gynecology
DX: O03.9 Complete or unspecified spontaneous abortion without complication (principal); N93.9 Abnormal uterine and vaginal bleeding, unspecified
CPT/HCPCS: 36415; 84702

== ENCOUNTER → 2025-07-17 09:10 | Outpatient (CLI) | payer BC, SELFPAY ==
[2021-02-07 02:40] VITALS: BMI 27.3
[2025-07-17 10:00] LABS: Add Manual Diff / Slide Review NO; Hematocrit 41.3 % (36-46); Hemoglobin 14.2 g/dL (12.0-16.0); Lymphocytes Absolute Auto 1900 /uL (1100-4500); Mean Corpuscular HGB Conc 34.4 % (30-36); Mean Corpuscular Hemoglobin 31.6 PG (26-34); Mean Corpuscular Volume 91.8 fL (80-100); Platelet Count 223 X10^3/uL (150-400)
[2025-07-17 10:31] LABS: HEMOLYSIS < 15 (0-50); Iron 73 ug/dL (37-170)
[2025-07-17 10:34] LABS: Alanine Aminotransferase 11 IU/L (<35); Albumin 4.7 g/dL (3.5-5.0); Albumin Globulin Ratio 1.6 (1.0-2.8); Alkaline Phosphatase 41 U/L (38-126); Blood Urea Nitrogen 18 mg/dL (7-17); Calcium 9.5 mg/dL (8.4-10.2); Carbon Dioxide 24 mmol/L (22-32); Chloride 105 mmol/L (98-107); Cholesterol 161 mg/dL (140-199); Estimated Glomerular Filt Rate > 60 mL/min (>60); Globulin 2.9 g/dL (1.7-4.1); Glucose 86 mg/dL (70-99); HDL Cholesterol 59 mg/dL (40-60); HEMOLYSIS 18 (0-50); Potassium 4.4 mmol/L (3.4-5.1); Sodium 138 mmol/L (137-145); Total Protein 7.6 g/dL (6.3-8.2); Triglycerides 52 mg/dL (35-150)
[2025-07-17 10:42] LABS: Percent Iron Saturation 21 % (15-50); Total Iron Binding Capacity 354 ug/dL (265-497); Transferrin 300 mg/dL (206-381)
[2025-07-17 10:45] LABS: HCG Quantitative /Beta subunit 39.95 mIU/mL
[2025-07-17 10:47] LABS: Free T3, Triiodothyronine Free 4.39 pg/mL (2.77-5.27); Free T4, Direct Thyroxine 1.00 ng/dL (0.78-2.19)
[2025-07-17 11:00] LABS: Thyroid Stimulating Hormone 2.12 uIU/mL (0.47-4.68)
[2025-07-17 11:06] LABS: Ferritin 12 ng/mL (6-137)
== END ==
PROVIDERS: PCP Naturopath; Referring Provider Obstetrics & Gynecology; Visit Provider Obstetrics & Gynecology
DX: O03.4 Incomplete spontaneous abortion without complication (principal); D50.9 Iron deficiency anemia, unspecified; R53.83 Other fatigue; E16.2 Hypoglycemia, unspecified
CPT/HCPCS: 36415; 80053; 80061; 82728; 83540; 83550; 84439; 84443; 84481; 84702; 85025; 86376

== ENCOUNTER 2025-07-17 13:33 | Day surgery (SDC) | payer BC, SELFPAY ==
[2021-02-07 02:40] VITALS: BMI 27.3
--- NOTE | 2025-07-17 | PATH_ITS ---
[facility] Accession Number: [id number] No. of containers..01 Tissue . 01 Material submitted: . product of conception - PRODUCTS OF CONCEPTION . 01 Diagnosis: PRODUCTS OF CONCEPTION, CURETTINGS: Immature chorionic villi and decidualized tissue with extensive degenerative changes, consistent with products of conception. Negative for gestational trophoblastic disease. MRV 07/25/2025 1238 Local . 01 Electronically signed: . Marilyn Salinas MD, Pathologist NPI- [id number] . 01 Gross description: . Received in formalin with two patient identifiers and products of conception is a 3.5 x 2.5 x 1.0 cm aggregate of andrews-brown, hemorrhagic and friable tissue fragments with possible admixed villous tissue (definitive villous tissue grossly). parts are not grossly identified. The specimen is filtered and entirely submitted in A1-A3. ([id number]) /MRV 07/19/2025 2044 Local . 01 Pathologist provided ICD-10: O03.4 . 01 CPT . 637888 Specimen Comment: A courtesy copy of this report has been sent to [facility] Pathology Performed at: [address] [facility] [address] [address], [place], [place] [id number] MD Mejia Santana MD Phone: [phone]
[2025-07-17 14:58] VITALS: BP 113/71; PULSE 64; RESP 16; TEMP 36.9; O2SAT 100; BMI 25.8
[2025-07-17] MEDS: LACTATED RINGERS 1,000 ML 42 ML IV (15:22)
[2025-07-17] MEDS: ONDANSETRON 4 MG/2 ML INJ IV (15:28)
[2025-07-17] MEDS: ACETAMINOPHEN 325 MG TABLET 975 MG PO (15:28)
--- NOTE | 2025-07-17 16:08 | PM.PREOP ---
Pre-operative Note COVID-19 COVID-19 status: Not tested Interval Note History & Physical reviewed/Exam performed by Physician: Yes Changes to H&P: No ASA Class (for procedural sedation): I
[2025-07-17] MEDS: DOXYCYCLINE HYCLATE 100 MG TABLET PO (16:15)
[2025-07-17] MEDS: diphenhydrAMINE 50 MG/ML VIAL 25 MG IV (16:15)
--- NOTE | 2025-07-17 16:48 | SUR.OPER ---
Lithotomy on padded OR bed, head on pillow, arms secured on padded arm boards at <90 degrees abduction. Legs secured in padded yellow fins stirrups.
[2025-07-17 16:57] VITALS: BP 161/56; PULSE 60; RESP 16; TEMP 36.6; O2SAT 95
[2025-07-17 17:00] VITALS: BP 106/59; PULSE 55; RESP 18; O2SAT 100
[2025-07-17 17:05] VITALS: BP 98/59; PULSE 50; RESP 22; O2SAT 100
[2025-07-17 17:20] VITALS: BP 105/64; PULSE 52; RESP 20; O2SAT 100
--- NOTE | 2025-07-17 17:34 | P.OP_ITS ---
Operative Date/Time/Diagnoses Date of procedure: 07/17/25 Time of procedure: 16:30 Pre-op diagnosis: Incomplete Post-op diagnosis: same Procedure & Clinicians Procedure: Suction dilation and curettage with Ultrasound guidance Same procedure(s) as scheduled: Yes Indications: incomplete Surgeon: Kimberli Cox Assisted?: No Anesthesia Type: MAC +/- Operative Notes Findings: minimal products of conception thin endometrial stripe on bedside ultrasound postprocedure Specimen(s): other (products of conception) Applied: none Estimated Blood Loss (mL): 10 Blood products transfused: none Procedure in detail: The patient was taken to the operating room where general anesthesia was administered without difficulty. The patient was prepped and draped in usual sterile fashion in lithotomy position with yellow fin stirrups. SCDs were pl aced. A weighted speculum was placed. The anterior lip of the cervix was grasped with a single tooth tenaculum. The cervix was gradually dilated with hegar dilators. An 8-mm suction curettage was advanced into the uterine cavity without difficulty and was used to suction contents of the uterus. Following removal of the products of conception, a sharp curette was advanced into the uterine and a gritty texture noted in all four quadrants. The suction curette was the replaced to remove any additional clots and debris. Ultrasound was then used to confirm a thin endometrial stripe and no evidence of retained tissue. This concluded the procedure. All instruments were removed. Patient tolerated procedure well and will go to the PACU for recovery. discharge home today. Complications: none Post-operative Condition: stable Disposition: same day surgery Plan for aftercare: pelvic rest x 2 weeks
[2025-07-17 17:40] VITALS: BP 107/72; PULSE 62; RESP 16; O2SAT 100
== END 2025-07-17 17:54 | disposition home or self-care (01) ==
PROVIDERS: PCP Naturopath; Referring Provider Naturopath; Visit Provider Obstetrics & Gynecology
PROC: (CPT 58120; principal; 2025-07-17 14:00)
DX: O03.4 Incomplete spontaneous abortion without complication (principal)
CPT/HCPCS: 59820; 36415; 80053; 80061; 82728; 83540; 83550; 84439; 84443; 84481; 84702; 85025; 86376; J1200; J2250; J2405; J2704; J7120

== ENCOUNTER → 2025-07-28 15:25 | Outpatient (CLI) | payer BC, SELFPAY ==
[2025-07-27 10:19] VITALS: BMI 27.3
[2025-07-28 17:25] LABS: HCG Quantitative /Beta subunit < 2.39 mIU/mL
== END ==
PROVIDERS: PCP Naturopath; Referring Provider Obstetrics & Gynecology; Visit Provider Obstetrics & Gynecology
DX: N71.0 Acute inflammatory disease of uterus (principal)
CPT/HCPCS: 36415; 84702